=== PATIENT | female | born 1990 | race Caucasian/White ===

== ENCOUNTER 2016-06-25 09:34 | Emergency (ER) | payer OTHER ==
[2016-06-25] MEDS ORDERED: ONDANSETRON 4MG/2ML VIAL (J2405) As Ordered ONE ×2 (10:09→11:15)
[2016-06-25 10:27] LABS: BASO % 0.1 % (0.0-1.0); EOS # 0.1 K/mm3 (0.0-0.50); EOS % 0.8 % (0.0-3.0); LARGE UNSTAINED CELL # 0.1 K/mm3 (0.0-0.4); LARGE UNSTAINED CELL % 0.4 % (0.0-4.0); LYMPH # 0.5 K/mm3 (1.5-6.5); LYMPH % 2.5 % (24.0-44.0); MEAN CORPUSCULAR HEMOGLOBIN 27.5 pg (27.0-33.0); MEAN CORPUSCULAR HGB CONC 33.7 g/dl (32.0-36.5); MEAN CORPUSCULAR VOLUME 81.6 fl (80.0-96.0); MONO # 0.4 K/mm3 (0.0-0.8); MONO % 2.1 % (0.0-5.0); NEUTROPHILS # 17.2 K/mm3 (1.8-7.7); NEUTROPHILS % 94.1 % (36.0-66.0); PLATELET COUNT, AUTOMATED 339 k/mm3 (150-450); WHITE BLOOD COUNT 18.3 K/mm3 (4.0-10.0)
[2016-06-25] MEDS ORDERED: GASTROGRAFIN SOLUTION 30ML (Q9963) As Ordered ONE (10:31)
[2016-06-25 10:42] LABS: CONTROL LINE HCG INT CTR LINE PRESENT
[2016-06-25 10:54] LABS: ALBUMIN 3.8 GM/DL (3.2-5.2); ALBUMIN/GLOBULIN RATIO 0.93 (1.00-1.93); ALKALINE PHOSPHATASE 106 U/L (45-117); ALT/SGPT 38 U/L (12-78); AMYLASE 27 U/L (25-115); ANION GAP 13 MEQ/L (8-16); AST/SGOT 12 U/L (15-37); BILIRUBIN,DIRECT < 0.1 MG/DL (0.0-0.2); BILIRUBIN,TOTAL 0.5 MG/DL (0.2-1.0); BLOOD UREA NITROGEN 12 MG/DL (7-18); CALCIUM LEVEL 9.2 MG/DL (8.5-10.1); CARBON DIOXIDE LEVEL 21 MEQ/L (21-32); CHLORIDE LEVEL 105 MEQ/L (98-107); CREATININE FOR GFR 0.87 MG/DL (0.55-1.02); GLOMERULAR FILTRATION RATE > 60.0 (>60); GLUCOSE, FASTING 107 MG/DL (70-105); SODIUM LEVEL 139 MEQ/L (136-145); TOTAL PROTEIN 7.9 GM/DL (6.4-8.2)
[2016-06-25 11:46] LABS: MICROSCOPIC INDICATED? MAN YES (NO); SQUAMOUS EPITHELIAL CELL URINE SMALL AMOUNT /hpf (SMALL AMT); WBC, URINE 0-1 /hpf (0-3)
[2016-06-25 11:47] LABS: BACTERIA, URINE SMALL AMOUNT; HYALINE CAST, URINE NONE SEEN /lpf (0-1); MICROSCOPIC EXAM PERFORMED
[2016-06-25] MEDS ORDERED: ISOVUE-370 76% 100ML VIAL (Q9967) As Ordered ONE (11:53)
[2016-06-25] MEDS ORDERED: DICYCLOMINE 10 MG CAP As Ordered ONE (13:13)
[2016-06-25] MEDS ORDERED: TRIMETHOBENZAMIDE HCL INJ 200 MG/2 ML VIAL (J3250) As Ordered ONE (13:13)
--- NOTE | 2016-06-25 13:49 | REP ---
CT ABDOMEN AND PELVIS WITH IV BUT WITHOUT ORAL CONTRAST: HISTORY: Abdominal pain. Comparison study is from June 05, 2008. CT contrast dose: 100 mL of Isovue [address] FINDINGS: Preliminary physical therapy assistant radiograph is unremarkable. The lung bases are clear. There is no evidence of pleural effusion or upper abdominal ascites. The liver and spleen are normal in size and homogeneous in texture. There is a small accessory splenule. Pancreas shows no abnormality. No adrenal lesion is seen on either side. The kidneys enhance symmetrically and are morphologically intact. Normal caliber aorta is seen. No retroperitoneal mass or adenopathy is seen. No abdominal wall defect is observed. Small and large intestinal bowel loops are normal in the abdomen and pelvis. No uterine or ovarian abnormality is seen. A vaginal diaphragm is noted in place. No bony destructive lesion is seen. There is no evidence of inflammation in the region of the appendix or cecal tip. A short normal appearing appendix is seen. IMPRESSION: Negative CT study of the abdomen and pelvis. Normal appendix. Vaginal diaphragm noted in place incidentally. No acute abnormality. Signed by Scott Cuenca MD 06/25/2016 02:07 P
--- NOTE | 2016-06-25 14:09 | EDDOCDS ---
Physician Documentation [facility] Name: Miri Leija Age: 26 yrs Sex: Female : 1990 Arrival Date: 06/25/2016 Time: 09:34 Bed I2 / M2 Private MD: Sharad Lobato MD Disposition: 06/25/16 13:49 Discharged to Home/Self Care. Impression: Other abdominal pain - LLQ, Nausea with vomiting, unspecified, Irritable bowel syndrome with diarrhea. - Condition is Stable. - Discharge Instructions: Irritable Bowel Syndrome, Adult, Nausea and Vomiting. - Prescriptions for Bentyl 20 mg Oral Tablet - take 1 tablet by ORAL route every 6 hours As needed TAKE DIRECTED, NEEDED FOR SPASM; 40 tablet. Tigan 300 mg Oral Capsule - take 1 capsule by ORAL route every 12 hours As needed; 30 capsule. - Family Work Release, Medication Reconciliation, Local Pharmacy Hours form. - Follow up: Emergency Department; When: As needed; Reason: Worsening of conditions. Follow up: Private Physician; When: 2 - 3 days; Reason: Wound/Symptom Recheck, Recheck today's complaints, Continuance of care. - Problem is new. - Symptoms have improved. Historical: - Allergies: no known allergies; - Home Meds: 1. propranolol 10 mg oral tab once a day 2. fluoxetine 20 mg oral tab once daily 3. Omeprazole Unknown Oral once daily - PMHx: GERD; - PSHx: none; - Social history: Smoking status: Patient states was never smoker of tobacco. No barriers to communication noted, The patient speaks fluent Urdu, Speaks appropriately for age. - Family history: Not pertinent. - : The pt / caregiver states he / she is not on anticoagulants. Home medication list is obtained from the patient. - Exposure Risk Screening:: None identified. 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 5 in. (165.10 cm); 12:37 BP 125 / 65; Pulse 89; Resp 20; Temp 98.8; Pulse Ox 99% ; Pain 4/10; jam1 13:50 BP 120 / 65; Pulse 94; Resp 18; Temp 98.9; Pulse Ox 98% ; Pain 0/10; jam1 09:36 Body Mass Index 32.45 (88.45 kg, 165.10 cm) cmb MDM: 10:05 NS 0.9% 1000 ml IV at bolus once ordered. ml 10:05 Ondansetron 4 mg IVP once ordered. ml 10:05 IV Saline Lock ordered. ml 10:05 Undress patient appropriately for examination ordered. ml 10:06 CT ABD & PELVIS: IV and Oral Contrast Ordered. EDMS 10:06 Amylase Ordered. EDMS 10:06 Basic Metabolic Profile Ordered. EDMS 10:06 CBC with Diff Ordered. EDMS 10:06 HCG,Serum Qualitative Ordered. EDMS 10:06 Lipase Ordered. EDMS 10:06 Liver Profile Ordered. EDMS 10:07 Urine Culture Ordered. EDMS 10:07 NOTHING BY MOUTH+DIET ordered. EDMS 10:10 Financial registration complete. mm15 10:17 [facility] [place] was scanned into [employer] and attached to record. mm15 10:44 Diatrizoate Meglumine & Sodium Liquid 10 ml PO once; mix in 290cc of water ordered. mcp 10:44 Diatrizoate Meglumine & Sodium Liquid 10 ml PO once; mix in 290cc of water ordered. mcp 11:09 Ondansetron 4 mg IVP once ordered. dt4 11:43 URINALYSIS MANUAL Ordered. EDMS 11:47 MICROSCOPIC, URINE Ordered. EDMS 12:58 Tigan 200 mg IM once ordered. dt4 12:58 Dicyclomine 40 mg PO once ordered. dt4 Administered Medications: 10:18 Drug: NS 0.9% 1000 ml [sodium chloride 0.9 % intravenous solution] Route: IV; Rate: mcp bolus; Site: right antecubital; 11:57 Follow up: IV Status: Completed infusion srm 10:18 Drug: Ondansetron 4 mg [ondansetron HCl 2 mg/mL intravenous solution (2 mL)] Route: mcp IVP; Site: right antecubital; 10:35 Drug: Diatrizoate Meglumine & Sodium 10 ml [diatrizoate meglumine and diat.sodium 66 mcp %-10 % oral solution (10 mL)] Route: PO; 11:21 Drug: Ondansetron 4 mg [ondansetron HCl 2 mg/mL intravenous solution (2 mL)] Route: ms18 IVP; Site: right antecubital; 11:39 Not Given (PT states that she cannot finish the gastrografin, provider aware. Ct ms18 notified. ): Diatrizoate Meglumine & Sodium Liquid 10 ml PO once; mix in 290cc of water 13:19 Drug: Dicyclomine 40 mg [dicyclomine 10 mg capsule (4 caps)] Route: PO; ms18 13:20 Drug: Tigan 200 mg [Tigan 100 mg/mL intramuscular solution (2 mL)] Route: IM; Site: ms18 right gluteus; Signatures: Dispatcher [employer] EDMS Tanisha Cardozo MD MD ml Peters, Mary, RN RN mcp McGrath, Marlynn mm15 Nayla Ring RN RN ead Tschudi, Diane PA-Yasemin PAAngela dt4 Marybeth Pulliam RN RN ms18 Ina Don RN [facility] The chart was reviewed and I authenticate all verbal orders and agree with the evaluation and treatment provided.Corrections: (The following items were deleted from the chart) 11:43 10:06 URINALYSIS+LAB ordered. EDMS EDMS Attachments: 10:17 [facility] Payment Agreement mm15 MTDD
--- NOTE | 2016-06-25 14:09 | EDDOCDS ---
Nurse's Notes [facility] Name: Miri Leija Age: 26 yrs Sex: Female : 1990 Arrival Date: 06/25/2016 Time: 09:34 Bed I2 / M2 Private MD: Sharad Lobato MD Diagnosis: Other abdominal pain-LLQ;Nausea with vomiting, unspecified;Irritable bowel syndrome with diarrhea Presentation: 06/25 09:43 Presenting complaint: Patient states: "I'm having severe stomach pains for about six ead hours." Pt also c/o n/v/d. Risk factors: the patient reports no vaginal bleeding. Adult Sepsis Screening: The patient does not have new or worsening altered mentation. Patient's respiratory rate is less than 22. Systolic blood pressure is greater than 100. Patient has a qSOFA score of 0- Negative Sepsis Screen. Suicide/Homicide risk assessment- the patient denies having any suicidal and/or homicidal ideations and does not present with any other emotional, behavioral or mental health complaints. Status: Patient is not a digital service engineer or dependent. Transition of care: patient was not received from another setting of care. 09:43 Acuity: ERASMO Level 3 ead 09:43 Method Of Arrival: Walkin/Carried/Asstd ead Triage Assessment: 09:45 General: Appears in no apparent distress, uncomfortable, Behavior is appropriate for ead age, cooperative. Pain: Location: abdomen Pain currently is 8 out of 10 on a pain scale. GI: Reports cramping, diarrhea, lower abdominal pain, upper abd pain, nausea, vomiting. : Denies pain urinary frequency, urgency. Derm: Skin is pink, warm & dry. 09:46 HIV screening NA for this visit Offered previously. 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 propranolol 10 mg oral tab once a day 2. fluoxetine 20 mg oral tab once daily 3. Omeprazole Unknown Oral once daily - PMHx: GERD; - PSHx: none; - Social history: Smoking status: Patient states was never smoker of tobacco. No barriers to communication noted, The patient speaks fluent Micronesian, Speaks appropriately for age. - Family history: Not pertinent. - : The pt / caregiver states he / she is not on anticoagulants. Home medication list is obtained from the patient. - Exposure Risk Screening:: None identified. Screenin:58 Screening information is obtained from the patient. Primary language is Micronesian. Fall jam1 risk: No risks identified. Assistance ADL's: requires no assistance with activities of daily living. Abuse/DV Screen: The patient / caregiver reports he/she is: not in a situation that causes fear, pain or injury. Nutritional screening: No deficits noted. Exposure Risk Screening: None identified. Advance Directives: Currently, there is no health care proxy. There is no active DNR order. There is no living will. There is no Power of Ware Finisher. Advance directive information has not previously been placed in an [facility] medical record. Further advance directive information is declined. home support is adequate. Assessment: 11:12 General: Appears in no apparent distress, obese, uncomfortable, Behavior is appropriate ms18 for age, cooperative. Neurological: Level of Consciousness is awake, alert, obeys commands, Oriented to person, place, time. Respiratory: Airway is patent Respiratory effort is even, unlabored. GI: Abdomen is non- distended Abd is soft X 4 quads Reports nausea, vomiting. Derm: Skin is pink, warm & dry. 11:19 General: pt states she's nauseous and feel hot after attempting to drink Gastrografin. [facility] PA aware. 12:14 General: Appears in no apparent distress, comfortable, Will continue to monitor pt. ms18 13:21 General: Appears in no apparent distress, comfortable, Behavior is appropriate for age, ms18 cooperative, Will continue to monitor pt. 14:06 General: Appears in no apparent distress, comfortable, Behavior is appropriate for age, ms18 cooperative. Pain: Denies pain. Neurological: No deficits noted. Respiratory: Airway is patent Respiratory effort is even, unlabored. GI: Abdomen is non- distended. Derm: Skin is pink, warm & dry. Vital Signs: 09:36 BP 154 / 87; Pulse 113; Resp 18; Temp 98.1(O); Pulse Ox 100% ; Weight 88.45 kg; Height cmb 5 ft. 5 in. (165.10 cm); 12:37 BP 125 / 65; Pulse 89; Resp 20; Temp 98.8; Pulse Ox 99% ; Pain 4/10; jam1 13:50 BP 120 / 65; Pulse 94; Resp 18; Temp 98.9; Pulse Ox 98% ; Pain 0/10; jam1 09:36 Body Mass Index 32.45 (88.45 kg, 165.10 cm) cmb Vitals: 09:36 Log In Time: June 25, 2016 at 09:34. cmb ED Course: 09:35 Patient visited by Brooke Nicolas. cmb 09:35 Patient moved to Waiting cmb 09:36 Sharad Lobato is Private Physician. cmb 09:37 Patient moved to Pre RCE cmb 09:44 Triage Initiated ead 09:46 Patient moved to Triage 2 ead 09:49 Tanisha Cardozo MD is Attending Physician. ml 09:49 Patient visited by Tanisha Cardozo MD. ml 09:53 Patient moved to I2 / M2 ead 09:59 Pt greeted and oriented to ED. Patient advised of names of staff involved in care, jam1 location of call li, wait times and NPO status. Patient has correct armband on for positive identification. Placed in gown. Bed in low position. Call light in reach. Side rails up X 1. Adult w/ patient. Door closed. 10:17 [facility] [place] Agreement was scanned into [employer] and attached to record. mm15 10:20 Amylase Sent. js13 10:20 Basic Metabolic Profile Sent. js13 10:20 CBC with Diff Sent. js13 10:20 HCG,Serum Qualitative Sent. js13 10:20 Lipase Sent. js13 10:20 Liver Profile Sent. js13 10:20 Inserted saline lock: 18 gauge in right antecubital area and blood collected. The js13 patient tolerated the procedure well. No procedures done that require assistance. Labs drawn. (by ED staff). Sent per order to lab. 10:50 Cheryl Oro PA-C is PHCP. dt4 10:51 Patient visited by Cheryl Oro PA-C. dt4 11:12 The patient / caregiver is instructed regarding the plan of care and ED course. ms18 Property :Personal belongings accompany Pt. 11:14 Patient visited by Marybeth Pulliam RN. ms18 11:21 Urine Culture Sent. ms18 11:38 Patient visited by Marybeth Pulliam RN. ms18 12:39 Patient visited by Marybeth Pulliam RN. ms18 13:19 Patient visited by Marybeth Pulliam RN. ms18 14:06 Discontinued IV lock intact, bleeding controlled, pressure dressing applied, No ms18 redness/swelling at site. Administered Medications: 10:18 Drug: NS 0.9% 1000 ml [sodium chloride 0.9 % intravenous solution] Route: IV; Rate: mcp bolus; Site: right antecubital; 11:57 Follow up: IV Status: Completed infusion srm 10:18 Drug: Ondansetron 4 mg [ondansetron HCl 2 mg/mL intravenous solution (2 mL)] Route: mcp IVP; Site: right antecubital; 10:35 Drug: Diatrizoate Meglumine & Sodium 10 ml [diatrizoate meglumine and diat.sodium 66 mcp %-10 % oral solution (10 mL)] Route: PO; 11:21 Drug: Ondansetron 4 mg [ondansetron HCl 2 mg/mL intravenous solution (2 mL)] Route: ms18 IVP; Site: right antecubital; 11:39 Not Given (PT states that she cannot finish the gastrografin, provider aware. Ct ms18 notified. ): Diatrizoate Meglumine & Sodium Liquid 10 ml PO once; mix in 290cc of water 13:19 Drug: Dicyclomine 40 mg [dicyclomine 10 mg capsule (4 caps)] Route: PO; ms18 13:20 Drug: Tigan 200 mg [Tigan 100 mg/mL intramuscular solution (2 mL)] Route: IM; Site: ms18 right gluteus; Intake: 11:58 IV: 1000.00ml (NS); Total: 1000.00ml. srm Order Results: Lab Order: Amylase; SPEC'M 06/25/16 10:17 Test: AMYLASE; Value: 27; Range: 25-115; Units: U/L; Status: F Lab Order: Basic Metabolic Profile; SPEC'M 06/25/16 10:17 Test: GLUCOSE, FASTING; Value: 107; Range: 70-105; Abnormal: Above high normal; Units: MG/DL; Status: F Test: BLOOD UREA NITROGEN; Value: 12; Range: 7-18; Units: MG/DL; Status: F Test: CREATININE FOR GFR; Value: 0.87; Range: 0.55-1.02; Units: MG/DL; Status: F Test: SODIUM LEVEL; Range: 136-145; Units: MEQ/L; Status: I Test: POTASSIUM SERUM; Range: 3.5-5.1; Units: MEQ/L; Status: I Test: CHLORIDE LEVEL; Range: 98-107; Units: MEQ/L; Status: I Test: CARBON DIOXIDE LEVEL; Range: 21-32; Units: MEQ/L; Status: I Test: ANION GAP; Range: 8-16; Units: MEQ/L; Status: I Test: CALCIUM LEVEL; Range: 8.5-10.1; Units: MG/DL; Status: I Test: GLOMERULAR FILTRATION RATE; Value: > 60.0; Range: >60; Status: F Test: SODIUM LEVEL; Value: 139; Range: 136-145; Units: MEQ/L; Status: F Test: POTASSIUM SERUM; Value: 4.0; Range: 3.5-5.1; Units: MEQ/L; Status: F Test: CHLORIDE LEVEL; Value: 105; Range: 98-107; Units: MEQ/L; Status: F Test: CARBON DIOXIDE LEVEL; Value: 21; Range: 21-32; Units: MEQ/L; Status: F Test: ANION GAP; Value: 13; Range: 8-16; Units: MEQ/L; Status: F Test: CALCIUM LEVEL; Value: 9.2; Range: 8.5-10.1; Units: MG/DL; Status: F Test Note: ; Units are mL/min/1.73 m2 Chronic Kidney Disease Staging per NKF: Stage I & II GFR >=60 Normal to Mildly Decreased Stage III GFR 30-59 Moderately Decreased Stage IV GFR 15-29 Severely Decreased Stage V GFR <15 Very Little GFR Left ESRD GFR <15 on FUEL HANDLER Lab Order: CBC with Diff; SPEC'M 06/25/16 10:17 Test: WHITE BLOOD COUNT; Value: 18.3; Range: 4.0-10.0; Abnormal: Above high normal; Units: K/mm3; Status: F Test: RED BLOOD COUNT; Value: 5.18; Range: 4.00-5.40; Units: M/mm3; Status: F Test: HEMOGLOBIN; Value: 14.2; Range: 12.0-16.0; Units: g/dl; Status: F Test: HEMATOCRIT; Value: 42.3; Range: 36.0-47.0; Units: %; Status: F Test: MEAN CORPUSCULAR VOLUME; Value: 81.6; Range: 80.0-96.0; Units: fl; Status: F Test: MEAN CORPUSCULAR HEMOGLOBIN; Value: 27.5; Range: 27.0-33.0; Units: pg; Status: F Test: MEAN CORPUSCULAR HGB CONC; Value: 33.7; Range: 32.0-36.5; Units: g/dl; Status: F Test: RED CELL DISTRIBUTION WIDTH; Value: 12.0; Range: 11.5-14.5; Units: %; Status: F Test: PLATELET COUNT, AUTOMATED; Value: 339; Range: 150-450; Units: k/mm3; Status: F Test: NEUTROPHILS %; Value: 94.1; Range: 36.0-66.0; Abnormal: Above high normal; Units: %; Status: F Test: LYMPH %; Value: 2.5; Range: 24.0-44.0; Abnormal: Below low normal; Units: %; Status: F Test: MONO %; Value: 2.1; Range: 0.0-5.0; Units: %; Status: F Test: EOS %; Value: 0.8; Range: 0.0-3.0; Units: %; Status: F Test: BASO %; Value: 0.1; Range: 0.0-1.0; Units: %; Status: F Test: LARGE UNSTAINED CELL %; Value: 0.4; Range: 0.0-4.0; Units: %; Status: F Test: NEUTROPHILS #; Value: 17.2; Range: 1.8-7.7; Abnormal: Above high normal; Units: K/mm3; Status: F Test: LYMPH #; Value: 0.5; Range: 1.5-6.5; Abnormal: Below low normal; Units: K/mm3; Status: F Test: MONO #; Value: 0.4; Range: 0.0-0.8; Units: K/mm3; Status: F Test: EOS #; Value: 0.1; Range: 0.0-0.50; Units: K/mm3; Status: F Test: BASO #; Value: 0.0; Range: 0.0-0.2; Units: K/mm3; Status: F Test: LARGE UNSTAINED CELL #; Value: 0.1; Range: 0.0-0.4; Units: K/mm3; Status: F Lab Order: HCG,Serum Qualitative; 06/25/16 10:17 Test: HCG, SERUM QUALITATIVE; Value: NEGATIVE; Range: NEGATIVE; Status: F Lab Order: Lipase; 06/25/16 10:17 Test: LIPASE; Value: 88; Range: 73-393; Units: U/L; Status: F Lab Order: Liver Profile; 06/25/16 10: Test: AST/SGOT; Value: 12; Range: 15-37; Abnormal: Below low normal; Units: U/L; Status: F Test: ALT/SGPT; Value: 38; Range: 12-78; Units: U/L; Status: F Test: ALKALINE PHOSPHATASE; Value: 106; Range: 45-117; Units: U/L; Status: F Test: BILIRUBIN,TOTAL; Value: 0.5; Range: 0.2-1.0; Units: MG/DL; Status: F Test: BILIRUBIN,DIRECT; Value: < 0.1; Range: 0.0-0.2; Units: MG/DL; Status: F Test: TOTAL PROTEIN; Value: 7.9; Range: 6.4-8.2; Units: GM/DL; Status: F Test: ALBUMIN; Value: 3.8; Range: 3.2-5.2; Units: GM/DL; Status: F Test: ALBUMIN/GLOBULIN RATIO; Value: 0.93; Range: 1.00-1.93; Abnormal: Below low normal; Status: F Lab Order: URINALYSIS MANUAL; 06/25/16 11:19 Test: APPEARANCE, URINE MANUAL; Value: CLEAR; Range: CLEAR; Status: F Test: COLOR, URINE MANUAL; Value: YELLOW; Range: YELLOW; Status: F Test: PH,URINE MAN; Value: 8.0; Range: 5.0 - 9.0; Units: UNITS; Status: F Test: SPECIFIC GRAVITY,URINE MANUAL; Value: 1.023; Range: 1.002-1.035; Status: F Test: PROTEIN, URINE MANUAL; Value: TRACE; Range: NEGATIVE; Abnormal: Above high normal; Units: mg/dL; Status: F Test: GLUCOSE, URINE (UA) MANUAL; Value: NEGATIVE; Range: NEGATIVE; Units: mg/dL; Status: F Test: KETONE, URINE MANUAL; Value: NEGATIVE; Range: NEGATIVE; Units: mg/dL; Status: F Test: UROBILINOGEN, URINE MANUAL; Value: NORMAL; Range: NORMAL; Units: mg/dl; Status: F Test: BILIRUBIN, URINE MANUAL; Value: NEGATIVE; Range: NEGATIVE; Status: F Test: NITRITE, URINE MANUAL; Value: NEGATIVE; Range: NEGATIVE; Status: F Test: LEUKOCYTE ESTERASE, URINE MAN; Value: NEGATIVE; Range: NEGATIVE; Status: F Test: BLOOD URINE MANUAL; Value: TRACE; Range: NEGATIVE; Abnormal: Above high normal; Status: F Lab Order: MICROSCOPIC, URINE; SPEC'M 06/25/16 11:19 Test: WBC, URINE; Value: 0-1; Range: 0-3; Units: /hpf; Status: F Test: RBC, URINE; Value: 1-3; Range: 0-3; Units: /hpf; Status: F Test: SQUAMOUS EPITHELIAL CELL URINE; Value: SMALL AMOUNT; Range: SMALL AMT; Units: /hpf; Status: F Test: BACTERIA, URINE; Value: SMALL AMOUNT; Range: NONE; Abnormal: Above high normal; Status: F Test: HYALINE CAST, URINE; Value: NONE SEEN; Range: 0-1; Units: /lpf; Status: F Test: MICROSCOPIC EXAM; Value: PERFORMED; Status: F Outcome: 13:49 Discharge ordered by Provider. dt4 14:06 Discharge Assessment: Patient awake, alert and oriented x 3. No cognitive and/or ms18 functional deficits noted. Patient verbalized understanding of disposition instructions. patient administered narcotics - no. The following High Risk Discharge criteria are identified: None. Discharged to home ambulatory. Condition: good Condition: stable Condition: improved. Discharge instructions given to patient, Instructed on discharge instructions, follow up and referral plans. medication usage, Demonstrated understanding of instructions, medications, Pt was receptive of discharge instructions/ teaching. Prescriptions given X 2, Work note provided to patient. CT Study completed. 14:09 Patient left the ED. ms18 Signatures: Tanisha Cardozo MD MD ml Ina Don, RN RN srm Salina Austin, RN RN Kirti Mills, EATING DISORDER SPECIALIST EATING DISORDER SPECIALIST jam1 Kelley Kolb RN RN js13 Brooke Nicolas cmb Oleg Sahni mm15 Nayla Ring,RN RN Cheryl Abbasi, PA-C PA-C dt4 Marybeth Pulliam RN RN ms18 Corrections: (The following items were deleted from the chart) 11:43 11:21 URINALYSIS+LAB sent. ms18 EDMS MTDD
--- NOTE | 2016-06-27 15:09 | EDDOCDS ---
Physician Documentation [facility] Name: Miri Leija Age: 26 yrs Sex: Female : 1990 Arrival Date: 06/25/2016 Time: 09:34 Bed I2 / M2 Private MD: Sharad Lobato MD Disposition: 06/25/16 13:49 Discharged to Home/Self Care. Impression: Other abdominal pain - LLQ, Nausea with vomiting, unspecified, Irritable bowel syndrome with diarrhea. - Condition is Stable. - Discharge Instructions: Irritable Bowel Syndrome, Adult, Nausea and Vomiting. - Prescriptions for Bentyl 20 mg Oral Tablet - take 1 tablet by ORAL route every 6 hours As needed TAKE DIRECTED, NEEDED FOR SPASM; 40 tablet. Tigan 300 mg Oral Capsule - take 1 capsule by ORAL route every 12 hours As needed; 30 capsule. - Family Work Release, Medication Reconciliation, Local Pharmacy Hours form. - Follow up: Emergency Department; When: As needed; Reason: Worsening of conditions. Follow up: Private Physician; When: 2 - 3 days; Reason: Wound/Symptom Recheck, Recheck today's complaints, Continuance of care. - Problem is new. - Symptoms have improved. Historical: - Allergies: no known allergies; - Home Meds: 1. propranolol 10 mg oral tab once a day 2. fluoxetine 20 mg oral tab once daily 3. Omeprazole Unknown Oral once daily - PMHx: GERD; - PSHx: none; - Social history: Smoking status: Patient states was never smoker of tobacco. No barriers to communication noted, The patient speaks fluent Kiswahili, Speaks appropriately for age. - Family history: Not pertinent. - : The pt / caregiver states he / she is not on anticoagulants. Home medication list is obtained from the patient. - Exposure Risk Screening:: None identified. 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 5 in. (165.10 cm); 12:37 BP 125 / 65; Pulse 89; Resp 20; Temp 98.8; Pulse Ox 99% ; Pain 4/10; jam1 13:50 BP 120 / 65; Pulse 94; Resp 18; Temp 98.9; Pulse Ox 98% ; Pain 0/10; jam1 09:36 Body Mass Index 32.45 (88.45 kg, 165.10 cm) cmb MDM: 10:05 NS 0.9% 1000 ml IV at bolus once ordered. ml 10:05 Ondansetron 4 mg IVP once ordered. ml 10:05 IV Saline Lock ordered. ml 10:05 Undress patient appropriately for examination ordered. ml 10:06 CT ABD & PELVIS: IV and Oral Contrast Ordered. EDMS 10:06 Amylase Ordered. EDMS 10:06 Basic Metabolic Profile Ordered. EDMS 10:06 CBC with Diff Ordered. EDMS 10:06 HCG,Serum Qualitative Ordered. EDMS 10:06 Lipase Ordered. EDMS 10:06 Liver Profile Ordered. EDMS 10:07 Urine Culture Ordered. EDMS 10:07 NOTHING BY MOUTH+DIET ordered. EDMS 10:10 Financial registration complete. mm15 10:17 [facility] Payment Agreement was scanned into [employer] and attached to record. mm15 10:44 Diatrizoate Meglumine & Sodium Liquid 10 ml PO once; mix in 290cc of water ordered. mcp 10:44 Diatrizoate Meglumine & Sodium Liquid 10 ml PO once; mix in 290cc of water ordered. mcp 11:09 Ondansetron 4 mg IVP once ordered. dt4 11:43 URINALYSIS MANUAL Ordered. EDMS 11:47 MICROSCOPIC, URINE Ordered. EDMS 12:58 Tigan 200 mg IM once ordered. dt4 12:58 Dicyclomine 40 mg PO once ordered. dt4 06/26 10:04 T-Sheet-- Draft Copy was scanned into [employer] and attached to record. gb 10:04 Radiology Report was scanned into [employer] and attached to record. gb Administered Medications: 06/25 10:18 Drug: NS 0.9% 1000 ml [sodium chloride 0.9 % intravenous solution] Route: IV; Rate: mcp bolus; Site: right antecubital; 11:57 Follow up: IV Status: Completed infusion srm 10:18 Drug: Ondansetron 4 mg [ondansetron HCl 2 mg/mL intravenous solution (2 mL)] Route: mcp IVP; Site: right antecubital; 10:35 Drug: Diatrizoate Meglumine & Sodium 10 ml [diatrizoate meglumine and diat.sodium 66 mcp %-10 % oral solution (10 mL)] Route: PO; 11:21 Drug: Ondansetron 4 mg [ondansetron HCl 2 mg/mL intravenous solution (2 mL)] Route: ms18 IVP; Site: right antecubital; 11:39 Not Given (PT states that she cannot finish the gastrografin, provider aware. Ct ms18 notified. ): Diatrizoate Meglumine & Sodium Liquid 10 ml PO once; mix in 290cc of water 13:19 Drug: Dicyclomine 40 mg [dicyclomine 10 mg capsule (4 caps)] Route: PO; ms18 13:20 Drug: Tigan 200 mg [Tigan 100 mg/mL intramuscular solution (2 mL)] Route: IM; Site: ms18 right gluteus; Signatures: Dispatcher [employer] EDMS Tanisha Cardozo MD MD ml Peters, Mary RN RN Ailyn Tinajero, Patrick [facility] Oleg Barreto mm15 Nayla Ring,MALINI RN eaCheryl Cordova PA-C PA-Yasemin dt4 Marybeth Pulliam RN RN ms18 Ina Don RN srm The chart was reviewed and I authenticate all verbal orders and agree with the evaluation and treatment provided.Corrections: (The following items were deleted from the chart) 11:43 10:06 URINALYSIS+LAB ordered. EDMS EDMS Attachments: 10:17 [facility] Payment Agreement mm15 06/26 10:04 T-Sheet-- Draft Copy gb Chart Complete [facility]
--- NOTE | 2016-06-27 15:10 | EDDOCDS ---
Physician Documentation [facility] Name: Miri Leija Age: 26 yrs Sex: Female : 1990 Arrival Date: 06/25/2016 Time: 09:34 Bed I2 / M2 Private MD: Sharad Lobato MD Disposition: 06/25/16 13:49 Discharged to Home/Self Care. Impression: Other abdominal pain - LLQ, Nausea with vomiting, unspecified, Irritable bowel syndrome with diarrhea. - Condition is Stable. - Discharge Instructions: Irritable Bowel Syndrome, Adult, Nausea and Vomiting. - Prescriptions for Bentyl 20 mg Oral Tablet - take 1 tablet by ORAL route every 6 hours As needed TAKE DIRECTED, NEEDED FOR SPASM; 40 tablet. Tigan 300 mg Oral Capsule - take 1 capsule by ORAL route every 12 hours As needed; 30 capsule. - Family Work Release, Medication Reconciliation, Local Pharmacy Hours form. - Follow up: Emergency Department; When: As needed; Reason: Worsening of conditions. Follow up: Private Physician; When: 2 - 3 days; Reason: Wound/Symptom Recheck, Recheck today's complaints, Continuance of care. - Problem is new. - Symptoms have improved. Historical: - Allergies: no known allergies; - Home Meds: 1. propranolol 10 mg oral tab once a day 2. fluoxetine 20 mg oral tab once daily 3. Omeprazole Unknown Oral once daily - PMHx: GERD; - PSHx: none; - Social history: Smoking status: Patient states was never smoker of tobacco. No barriers to communication noted, The patient speaks fluent Urdu, Speaks appropriately for age. - Family history: Not pertinent. - : The pt / caregiver states he / she is not on anticoagulants. Home medication list is obtained from the patient. - Exposure Risk Screening:: None identified. 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 5 in. (165.10 cm); 12:37 BP 125 / 65; Pulse 89; Resp 20; Temp 98.8; Pulse Ox 99% ; Pain 4/10; jam1 13:50 BP 120 / 65; Pulse 94; Resp 18; Temp 98.9; Pulse Ox 98% ; Pain 0/10; jam1 09:36 Body Mass Index 32.45 (88.45 kg, 165.10 cm) cmb MDM: 10:05 NS 0.9% 1000 ml IV at bolus once ordered. ml 10:05 Ondansetron 4 mg IVP once ordered. ml 10:05 IV Saline Lock ordered. ml 10:05 Undress patient appropriately for examination ordered. ml 10:06 CT ABD & PELVIS: IV and Oral Contrast Ordered. EDMS 10:06 Amylase Ordered. EDMS 10:06 Basic Metabolic Profile Ordered. EDMS 10:06 CBC with Diff Ordered. EDMS 10:06 HCG,Serum Qualitative Ordered. EDMS 10:06 Lipase Ordered. EDMS 10:06 Liver Profile Ordered. EDMS 10:07 Urine Culture Ordered. EDMS 10:07 NOTHING BY MOUTH+DIET ordered. EDMS 10:10 Financial registration complete. mm15 10:17 [facility] Payment Agreement was scanned into [employer] and attached to record. mm15 10:44 Diatrizoate Meglumine & Sodium Liquid 10 ml PO once; mix in 290cc of water ordered. mcp 10:44 Diatrizoate Meglumine & Sodium Liquid 10 ml PO once; mix in 290cc of water ordered. mcp 11:09 Ondansetron 4 mg IVP once ordered. dt4 11:43 URINALYSIS MANUAL Ordered. EDMS 11:47 MICROSCOPIC, URINE Ordered. EDMS 12:58 Tigan 200 mg IM once ordered. dt4 12:58 Dicyclomine 40 mg PO once ordered. dt4 06/26 10:04 T-Sheet-- Draft Copy was scanned into [employer] and attached to record. gb 10:04 Radiology Report was scanned into [employer] and attached to record. gb Administered Medications: 06/25 10:18 Drug: NS 0.9% 1000 ml [sodium chloride 0.9 % intravenous solution] Route: IV; Rate: mcp bolus; Site: right antecubital; 11:57 Follow up: IV Status: Completed infusion srm 10:18 Drug: Ondansetron 4 mg [ondansetron HCl 2 mg/mL intravenous solution (2 mL)] Route: mcp IVP; Site: right antecubital; 10:35 Drug: Diatrizoate Meglumine & Sodium 10 ml [diatrizoate meglumine and diat.sodium 66 mcp %-10 % oral solution (10 mL)] Route: PO; 11:21 Drug: Ondansetron 4 mg [ondansetron HCl 2 mg/mL intravenous solution (2 mL)] Route: ms18 IVP; Site: right antecubital; 11:39 Not Given (PT states that she cannot finish the gastrografin, provider aware. Ct ms18 notified. ): Diatrizoate Meglumine & Sodium Liquid 10 ml PO once; mix in 290cc of water 13:19 Drug: Dicyclomine 40 mg [dicyclomine 10 mg capsule (4 caps)] Route: PO; ms18 13:20 Drug: Tigan 200 mg [Tigan 100 mg/mL intramuscular solution (2 mL)] Route: IM; Site: ms18 right gluteus; Signatures: Dispatcher [employer] EDMS Tanisha Cardozo MD MD ml Peters, Mary RN RN Ailyn Tinajero, aPtrick [facility] Oleg Barreto mm15 Nayla Ring,MALINI RN eaCheryl Cordova PA-C PA-Yasemin dt4 Marybeth Pulliam RN RN ms18 Ina Don RN srm The chart was reviewed and I authenticate all verbal orders and agree with the evaluation and treatment provided.Corrections: (The following items were deleted from the chart) 11:43 10:06 URINALYSIS+LAB ordered. EDMS EDMS Attachments: 10:17 [facility] Payment Agreement mm15 06/26 10:04 T-Sheet-- Draft Copy gb Chart [facility]
--- NOTE | 2016-06-27 15:10 | EDDOCDS ---
Nurse's Notes [facility] Name: Miri Leija Age: 26 yrs Sex: Female : 1990 Arrival Date: 06/25/2016 Time: 09:34 Bed I2 / M2 Private MD: Sharad Lobato MD Diagnosis: Other abdominal pain-LLQ;Nausea with vomiting, unspecified;Irritable bowel syndrome with diarrhea Presentation: 06/25 09:43 Presenting complaint: Patient states: "I'm having severe stomach pains for about six ead hours." Pt also c/o n/v/d. Risk factors: the patient reports no vaginal bleeding. Adult Sepsis Screening: The patient does not have new or worsening altered mentation. Patient's respiratory rate is less than 22. Systolic blood pressure is greater than 100. Patient has a qSOFA score of 0- Negative Sepsis Screen. Suicide/Homicide risk assessment- the patient denies having any suicidal and/or homicidal ideations and does not present with any other emotional, behavioral or mental health complaints. 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 Transition of care: patient was not received from another setting of care. 09:43 Acuity: ERASMO Level 3 ead 09:43 Method Of Arrival: Walkin/Carried/Asstd ead Triage Assessment: 09:45 General: Appears in no apparent distress, uncomfortable, Behavior is appropriate for ead age, cooperative. Pain: Location: abdomen Pain currently is 8 out of 10 on a pain scale. GI: Reports cramping, diarrhea, lower abdominal pain, upper abd pain, nausea, vomiting. : Denies pain urinary frequency, urgency. Derm: Skin is pink, warm & dry. 09:46 HIV screening NA for this visit Offered previously. 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 propranolol 10 mg oral tab once a day 2. fluoxetine 20 mg oral tab once daily 3. Omeprazole Unknown Oral once daily - PMHx: GERD; - PSHx: none; - Social history: Smoking status: Patient states was never smoker of tobacco. No barriers to communication noted, The patient speaks fluent Cameroonian, Speaks appropriately for age. - Family history: Not pertinent. - : The pt / caregiver states he / she is not on anticoagulants. Home medication list is obtained from the patient. - Exposure Risk Screening:: None identified. Screenin:58 Screening information is obtained from the patient. Primary language is Cameroonian. Fall jam1 risk: No risks identified. Assistance ADL's: requires no assistance with activities of daily living. Abuse/DV Screen: The patient / caregiver reports he/she is: not in a situation that causes fear, pain or injury. Nutritional screening: No deficits noted. Exposure Risk Screening: None identified. Advance Directives: Currently, there is no health care proxy. There is no active DNR order. There is no living will. There is no Power of Reliability Technologist. Advance directive information has not previously been placed in an [facility] medical record. Further advance directive information is declined. home support is adequate. Assessment: 11:12 General: Appears in no apparent distress, obese, uncomfortable, Behavior is appropriate ms18 for age, cooperative. Neurological: Level of Consciousness is awake, alert, obeys commands, Oriented to person, place, time. Respiratory: Airway is patent Respiratory effort is even, unlabored. GI: Abdomen is non- distended Abd is soft X 4 quads Reports nausea, vomiting. Derm: Skin is pink, warm & dry. 11:19 General: pt states she's nauseous and feel hot after attempting to drink Gastrografin. [facility] PA aware. 12:14 General: Appears in no apparent distress, comfortable, Will continue to monitor pt. ms18 13:21 General: Appears in no apparent distress, comfortable, Behavior is appropriate for age, ms18 cooperative, Will continue to monitor pt. 14:06 General: Appears in no apparent distress, comfortable, Behavior is appropriate for age, ms18 cooperative. Pain: Denies pain. Neurological: No deficits noted. Respiratory: Airway is patent Respiratory effort is even, unlabored. GI: Abdomen is non- distended. Derm: Skin is pink, warm & dry. Vital Signs: 09:36 BP 154 / 87; Pulse 113; Resp 18; Temp 98.1(O); Pulse Ox 100% ; Weight 88.45 kg; Height cmb 5 ft. 5 in. (165.10 cm); 12:37 BP 125 / 65; Pulse 89; Resp 20; Temp 98.8; Pulse Ox 99% ; Pain 4/10; jam1 13:50 BP 120 / 65; Pulse 94; Resp 18; Temp 98.9; Pulse Ox 98% ; Pain 0/10; jam1 09:36 Body Mass Index 32.45 (88.45 kg, 165.10 cm) cmb Vitals: 09:36 Log In Time: June 25, 2016 at 09:34. cmb ED Course: 09:35 Patient visited by Brooke Nicolas. cmb 09:35 Patient moved to Waiting cmb 09:36 Sharad Lobato is Private Physician. cmb 09:37 Patient moved to Pre RCE cmb 09:44 Triage Initiated ead 09:46 Patient moved to Triage 2 ead 09:49 Tanisha Cardozo MD is Attending Physician. ml 09:49 Patient visited by Tanisha Cardozo MD. ml 09:53 Patient moved to I2 / M2 ead 09:59 Pt greeted and oriented to ED. Patient advised of names of staff involved in care, jam1 location of call li, wait times and NPO status. Patient has correct armband on for positive identification. Placed in gown. Bed in low position. Call light in reach. Side rails up X 1. Adult w/ patient. Door closed. 10:17 [facility] [place] was scanned into eventblimp and attached to record. mm15 10:20 Amylase Sent. js13 10:20 Basic Metabolic Profile Sent. js13 10:20 CBC with Diff Sent. js13 10:20 HCG,Serum Qualitative Sent. js13 10:20 Lipase Sent. js13 10:20 Liver Profile Sent. js13 10:20 Inserted saline lock: 18 gauge in right antecubital area and blood collected. The js13 patient tolerated the procedure well. No procedures done that require assistance. Labs drawn. (by ED staff). Sent per order to lab. 10:50 Cheryl Oro PA-C is PHCP. dt4 10:51 Patient visited by Cheryl Oro PA-C. dt4 11:12 The patient / caregiver is instructed regarding the plan of care and ED course. ms18 Property :Personal belongings accompany Pt. 11:14 Patient visited by Marybeth Pulliam RN. ms18 11:21 Urine Culture Sent. ms18 11:38 Patient visited by Marybeth Pulliam RN. ms18 12:39 Patient visited by Marybeth Pulliam,RN. ms18 13:19 Patient visited by Marybeth Pluliam,RN. ms18 14:06 Discontinued IV lock intact, bleeding controlled, pressure dressing applied, No ms18 redness/swelling at site. 14:11 CT ABD & PELVIS: IV and Oral Contrast Returned. EDMS 06/26 10:04 T-Sheet-- Draft Copy was scanned into eventblimp and attached to record. gb 10:04 Radiology Report was scanned into eventblimp and attached to record. gb Administered Medications: 06/25 10:18 Drug: NS 0.9% 1000 ml [sodium chloride 0.9 % intravenous solution] Route: IV; Rate: mcp bolus; Site: right antecubital; 11:57 Follow up: IV Status: Completed infusion srm 10:18 Drug: Ondansetron 4 mg [ondansetron HCl 2 mg/mL intravenous solution (2 mL)] Route: mcp IVP; Site: right antecubital; 10:35 Drug: Diatrizoate Meglumine & Sodium 10 ml [diatrizoate meglumine and diat.sodium 66 mcp %-10 % oral solution (10 mL)] Route: PO; 11:21 Drug: Ondansetron 4 mg [ondansetron HCl 2 mg/mL intravenous solution (2 mL)] Route: ms18 IVP; Site: right antecubital; 11:39 Not Given (PT states that she cannot finish the gastrografin, provider aware. Ct ms18 notified. ): Diatrizoate Meglumine & Sodium Liquid 10 ml PO once; mix in 290cc of water 13:19 Drug: Dicyclomine 40 mg [dicyclomine 10 mg capsule (4 caps)] Route: PO; ms18 13:20 Drug: Tigan 200 mg [Tigan 100 mg/mL intramuscular solution (2 mL)] Route: IM; Site: ms18 right gluteus; Intake: 11:58 IV: 1000.00ml (NS); Total: 1000.00ml. srm Order Results: Lab Order: Amylase; SPEC'M 06/25/16 10:17 Test: AMYLASE; Value: 27; Range: 25-115; Units: U/L; Status: F Lab Order: Basic Metabolic Profile; SPEC'M 06/25/16 10:17 Test: GLUCOSE, FASTING; Value: 107; Range: 70-105; Abnormal: Above high normal; Units: MG/DL; Status: F Test: BLOOD UREA NITROGEN; Value: 12; Range: 7-18; Units: MG/DL; Status: F Test: CREATININE FOR GFR; Value: 0.87; Range: 0.55-1.02; Units: MG/DL; Status: F Test: SODIUM LEVEL; Range: 136-145; Units: MEQ/L; Status: I Test: POTASSIUM SERUM; Range: 3.5-5.1; Units: MEQ/L; Status: I Test: CHLORIDE LEVEL; Range: 98-107; Units: MEQ/L; Status: I Test: CARBON DIOXIDE LEVEL; Range: 21-32; Units: MEQ/L; Status: I Test: ANION GAP; Range: 8-16; Units: MEQ/L; Status: I Test: CALCIUM LEVEL; Range: 8.5-10.1; Units: MG/DL; Status: I Test: GLOMERULAR FILTRATION RATE; Value: > 60.0; Range: >60; Status: F Test: SODIUM LEVEL; Value: 139; Range: 136-145; Units: MEQ/L; Status: F Test: POTASSIUM SERUM; Value: 4.0; Range: 3.5-5.1; Units: MEQ/L; Status: F Test: CHLORIDE LEVEL; Value: 105; Range: 98-107; Units: MEQ/L; Status: F Test: CARBON DIOXIDE LEVEL; Value: 21; Range: 21-32; Units: MEQ/L; Status: F Test: ANION GAP; Value: 13; Range: 8-16; Units: MEQ/L; Status: F Test: CALCIUM LEVEL; Value: 9.2; Range: 8.5-10.1; Units: MG/DL; Status: F Test Note: ; Units are mL/min/1.73 m2 Chronic Kidney Disease Staging per NKF: Stage I & II GFR >=60 Normal to Mildly Decreased Stage III GFR 30-59 Moderately Decreased Stage IV GFR 15-29 Severely Decreased Stage V GFR <15 Very Little GFR Left ESRD GFR <15 on COMMUNITY SUPPORT ASSOCIATE Lab Order: CBC with Diff; SPEC'M 06/25/16 10:17 Test: WHITE BLOOD COUNT; Value: 18.3; Range: 4.0-10.0; Abnormal: Above high normal; Units: K/mm3; Status: F Test: RED BLOOD COUNT; Value: 5.18; Range: 4.00-5.40; Units: M/mm3; Status: F Test: HEMOGLOBIN; Value: 14.2; Range: 12.0-16.0; Units: g/dl; Status: F Test: HEMATOCRIT; Value: 42.3; Range: 36.0-47.0; Units: %; Status: F Test: MEAN CORPUSCULAR VOLUME; Value: 81.6; Range: 80.0-96.0; Units: fl; Status: F Test: MEAN CORPUSCULAR HEMOGLOBIN; Value: 27.5; Range: 27.0-33.0; Units: pg; Status: F Test: MEAN CORPUSCULAR HGB CONC; Value: 33.7; Range: 32.0-36.5; Units: g/dl; Status: F Test: RED CELL DISTRIBUTION WIDTH; Value: 12.0; Range: 11.5-14.5; Units: %; Status: F Test: PLATELET COUNT, AUTOMATED; Value: 339; Range: 150-450; Units: k/mm3; Status: F Test: NEUTROPHILS %; Value: 94.1; Range: 36.0-66.0; Abnormal: Above high normal; Units: %; Status: F Test: LYMPH %; Value: 2.5; Range: 24.0-44.0; Abnormal: Below low normal; Units: %; Status: F Test: MONO %; Value: 2.1; Range: 0.0-5.0; Units: %; Status: F Test: EOS %; Value: 0.8; Range: 0.0-3.0; Units: %; Status: F Test: BASO %; Value: 0.1; Range: 0.0-1.0; Units: %; Status: F Test: LARGE UNSTAINED CELL %; Value: 0.4; Range: 0.0-4.0; Units: %; Status: F Test: NEUTROPHILS #; Value: 17.2; Range: 1.8-7.7; Abnormal: Above high normal; Units: K/mm3; Status: F Test: LYMPH #; Value: 0.5; Range: 1.5-6.5; Abnormal: Below low normal; Units: K/mm3; Status: F Test: MONO #; Value: 0.4; Range: 0.0-0.8; Units: K/mm3; Status: F Test: EOS #; Value: 0.1; Range: 0.0-0.50; Units: K/mm3; Status: F Test: BASO #; Value: 0.0; Range: 0.0-0.2; Units: K/mm3; Status: F Test: LARGE UNSTAINED CELL #; Value: 0.1; Range: 0.0-0.4; Units: K/mm3; Status: F Lab Order: HCG,Serum Qualitative; SPEC'M 06/25/16 10:17 Test: HCG, SERUM QUALITATIVE; Value: NEGATIVE; Range: NEGATIVE; Status: F Lab Order: Lipase; [facility]06/25/16 10:17 Test: LIPASE; Value: 88; Range: 73-393; Units: U/L; Status: F Lab Order: Liver Profile; [facility]06/25/16 10:17 Test: AST/SGOT; Value: 12; Range: 15-37; Abnormal: Below low normal; Units: U/L; Status: F Test: ALT/SGPT; Value: 38; Range: 12-78; Units: U/L; Status: F Test: ALKALINE PHOSPHATASE; Value: 106; Range: 45-117; Units: U/L; Status: F Test: BILIRUBIN,TOTAL; Value: 0.5; Range: 0.2-1.0; Units: MG/DL; Status: F Test: BILIRUBIN,DIRECT; Value: < 0.1; Range: 0.0-0.2; Units: MG/DL; Status: F Test: TOTAL PROTEIN; Value: 7.9; Range: 6.4-8.2; Units: GM/DL; Status: F Test: ALBUMIN; Value: 3.8; Range: 3.2-5.2; Units: GM/DL; Status: F Test: ALBUMIN/GLOBULIN RATIO; Value: 0.93; Range: 1.00-1.93; Abnormal: Below low normal; Status: F Lab Order: Urine Culture; SPEC' 06/25/16 11:19 Test: URINE CULTURE; Value: <EXTERNAL COMMENT eCWMed> FULL REPORT IN LAB NOTES (eCW and Medent).; Status: F Test: URINE CULTURE; Value: URINE CULTURE RESULT NO GROWTH; Status: F Lab Order: URINALYSIS MANUAL; SPEC'M 06/25/16 11:19 Test: APPEARANCE, URINE MANUAL; Value: CLEAR; Range: CLEAR; Status: F Test: COLOR, URINE MANUAL; Value: YELLOW; Range: YELLOW; Status: F Test: PH,URINE MAN; Value: 8.0; Range: 5.0 - 9.0; Units: UNITS; Status: F Test: SPECIFIC GRAVITY,URINE MANUAL; Value: 1.023; Range: 1.002-1.035; Status: F Test: PROTEIN, URINE MANUAL; Value: TRACE; Range: NEGATIVE; Abnormal: Above high normal; Units: mg/dL; Status: F Test: GLUCOSE, URINE (UA) MANUAL; Value: NEGATIVE; Range: NEGATIVE; Units: mg/dL; Status: F Test: KETONE, URINE MANUAL; Value: NEGATIVE; Range: NEGATIVE; Units: mg/dL; Status: F Test: UROBILINOGEN, URINE MANUAL; Value: NORMAL; Range: NORMAL; Units: mg/dl; Status: F Test: BILIRUBIN, URINE MANUAL; Value: NEGATIVE; Range: NEGATIVE; Status: F Test: NITRITE, URINE MANUAL; Value: NEGATIVE; Range: NEGATIVE; Status: F Test: LEUKOCYTE ESTERASE, URINE MAN; Value: NEGATIVE; Range: NEGATIVE; Status: F Test: BLOOD URINE MANUAL; Value: TRACE; Range: NEGATIVE; Abnormal: Above high normal; Status: F Lab Order: MICROSCOPIC, URINE; SPEC'M 06/25/16 11:19 Test: WBC, URINE; Value: 0-1; Range: 0-3; Units: /hpf; Status: F Test: RBC, URINE; Value: 1-3; Range: 0-3; Units: /hpf; Status: F Test: SQUAMOUS EPITHELIAL CELL URINE; Value: SMALL AMOUNT; Range: SMALL AMT; Units: /hpf; Status: F Test: BACTERIA, URINE; Value: SMALL AMOUNT; Range: NONE; Abnormal: Above high normal; Status: F Test: HYALINE CAST, URINE; Value: NONE SEEN; Range: 0-1; Units: /lpf; Status: F Test: MICROSCOPIC EXAM; Value: PERFORMED; Status: F Radiology Order: CT ABD & PELVIS: IV and Oral Contrast Test: CT ABD & PELVIS: IV and Oral Contrast REASON FOR EXAMINATION: Abdomen Pain; CT ABDOMEN AND PELVIS WITH IV BUT WITHOUT ORAL CONTRAST:; ; HISTORY: Abdominal pain.; ; Comparison study is from June 05, 2008.; ; CT contrast dose: 100 mL of Isovue 370 is administered intravenously.; ; CT FINDINGS: Preliminary smoking pipe liner radiograph is unremarkable. The lung bases are; clear. There is no evidence of pleural effusion or upper abdominal ascites. The; liver and spleen are normal in size and homogeneous in texture. There is a small; accessory splenule. Pancreas shows no abnormality. No adrenal lesion is seen on; either side. The kidneys enhance symmetrically and are morphologically intact.; Normal caliber aorta is seen. No retroperitoneal mass or adenopathy is seen. No; abdominal wall defect is observed. Small and large intestinal bowel loops are; normal in the abdomen and pelvis. No uterine or ovarian abnormality is seen. A; vaginal diaphragm is noted in place. No bony destructive lesion is seen. There; is no evidence of inflammation in the region of the appendix or cecal tip. A; short normal appearing appendix is seen.; ; IMPRESSION: Negative CT study of the abdomen and pelvis. Normal appendix.; Vaginal diaphragm noted in place incidentally. No acute abnormality.; ; ; Signed by; Scott Cuenca MD 06/25/2016 02:07 P; Outcome: 13:49 Discharge ordered by Provider. dt4 14:06 Discharge Assessment: Patient awake, alert and oriented x 3. No cognitive and/or ms18 functional deficits noted. Patient verbalized understanding of disposition instructions. patient administered narcotics - no. The following High Risk Discharge criteria are identified: None. Discharged to home ambulatory. Condition: good Condition: stable Condition: improved. Discharge instructions given to patient, Instructed on discharge instructions, follow up and referral plans. medication usage, Demonstrated understanding of instructions, medications, Pt was receptive of discharge instructions/ teaching. Prescriptions given X 2, Work note provided to patient. CT Study completed. 14:09 Patient left the ED. ms18 Signatures: Dispatcher [employer] EDMS Tanisha Cardozo MD MD ml Michelson, Staci, Salina Juan RN, RN RN mcp Murphy, Jane, LOADER MAGAZINE GRINDER LOADER MAGAZINE GRINDER jam1 Ailyn Steel, Reg Reg Kelley Tomlin RN RN js13 BoshartBrooke Marlynn mm15 Nayla Ring,RN RN ead Cheryl Oro PA-C PAAngela dt4 Marybeth PulliamRN RN ms18 Corrections: (The following items were deleted from the chart) 11:43 11:21 URINALYSIS+LAB sent. ms18 EDMS Chart Complete MTDD
== END 2016-06-25 14:09 | disposition home or self-care (01) ==
LOC: M ED 09:34
DX: R10.9 Unspecified abdominal pain (principal); R11.2 Nausea with vomiting, unspecified; R19.7 Diarrhea, unspecified; K21.9 Gastro-esophageal reflux disease without esophagitis; Z79.899 Other long term (current) drug therapy
CPT/HCPCS: 36415; 74177; 80048; 80076; 81000; 82150; 83690; 84703; 85025; 87086; 96361; 96372; 96374; 96376; 99284; J2405; J3250; Q9963; Q9967

== ENCOUNTER → 2016-11-05 | Outpatient (CLI) | payer OTHER ==
[2016-11-06 11:40] LABS: COMPLEMENT C4 48.6 MG/DL (10-40); FREE T4 1.23 NG/DL (0.76-1.46)
[2016-11-12 00:06] LABS: ANTI-SACCHAROMYCES CEREV. IgA <20.0 Units (0.0-24.9); ANTI-SACCHAROMYCES CEREV. IgG <20.0 Units (0.0-24.9); C1 ESTERASE INHIB. FUNCTIONAL 77 (.)
== END ==
LOC: M LRY 16:21
PROVIDERS: ATTEND Internal Medicine Gastroenterology
DX: K59.1 Functional diarrhea (principal); R10.30 Lower abdominal pain, unspecified; K44.9 Diaphragmatic hernia without obstruction or gangrene; K21.9 Gastro-esophageal reflux disease without esophagitis; R11.2 Nausea with vomiting, unspecified

== ENCOUNTER 2016-12-18 11:21 | Emergency (ER) | payer OTHER ==
[~2016-12-18] VITALS: Ht 165.1 cm; Wt 95.4 kg
[2016-12-18 11:22] VITALS: BP 129/77
== END 2016-12-18 11:30 | disposition left against medical advice (07) ==
LOC: M ED 11:21
DX: Z53.29 Procedure and treatment not carried out because of patient's decision for other reasons (principal)

== ENCOUNTER → 2017-06-05 | Outpatient (REF) | payer OTHER ==
[2017-06-05 21:36] LABS: CHLAMYDIA DNA AMPLIFICATION NEGATIVE (NEGATIVE); GC DNA AMPLIFICATION NEGATIVE (NEGATIVE)
== END ==
LOC: M SFHCLERA 12:56
DX: N30.01 Acute cystitis with hematuria (principal)

== ENCOUNTER 2017-06-29 02:47 | Emergency (ER) | payer OTHER ==
[2017-06-29] MEDS: NS 1,000 ML IV (03:45)
[2017-06-29 04:15] LABS: BASO # 0.1 10^3/uL (0.0-0.2); BASO % 0.7 % (0.0-1.0); EOS # 0.1 10^3/uL (0.0-0.50); EOS % 0.6 % (0.0-3.0); HEMATOCRIT 38.6 % (36.0-47.0); HEMOGLOBIN 12.7 g/dl (12.0-16.0); IMMATURE GRANULOCYTE % 0.4 % (0-0); LYMPH # 2.4 10^3/uL (1.5-6.5); LYMPH % 29.4 % (24.0-44.0); MEAN CORPUSCULAR HEMOGLOBIN 26.8 pg (27.0-33.0); MEAN CORPUSCULAR HGB CONC 32.9 g/dl (32.0-36.5); MEAN CORPUSCULAR VOLUME 81.6 fl (80.0-96.0); MONO # 0.6 10^3/uL (0.0-0.8); MONO % 7.4 % (0.0-5.0); NEUTROPHILS % 61.5 % (36.0-66.0); PLATELET COUNT, AUTOMATED 325 10^3/uL (150-450); RED BLOOD COUNT 4.73 10^6/uL (4.00-5.40); RED CELL DISTRIBUTION WIDTH 12.1 % (11.5-14.5); VENOUS BASE EXCESS -2.5 (-2.0-2.0); VENOUS O2 SATURATION 97.6 % (60.0-80.0); VENOUS PARTIAL PRESSURE CO2 32.4 mmHg (38.0-50.0); VENOUS PARTIAL PRESSURE O2 102.3 mmHg (30.0-50.0); VENOUS PH 7.429 UNITS (7.330-7.430); VENOUS STANDARD HCO3 22.4 MEQ/L; WHITE BLOOD COUNT 8.2 10^3/uL (4.0-10.0)
[2017-06-29 04:35] LABS: CONTROL LINE HCG INT CTR LINE PRESENT; HCG, SERUM QUALITATIVE NEGATIVE (NEGATIVE)
[2017-06-29 04:39] LABS: OSMOLALITY SERUM 351 MOSM/KG (275-295)
[2017-06-29 04:49] LABS: AMPHETAMINES LEVEL URINE NEGATIVE (NEGATIVE); BARBITURATES URINE NEGATIVE (NEGATIVE); BENZODIAZEPINES URINE NEGATIVE (NEGATIVE); CANNABINOIDS URINE NEGATIVE (NEGATIVE); COCAINE METABOLITE URINE NEGATIVE (NEGATIVE); METHADONE URINE NEGATIVE (NEGATIVE); OPIATES URINE NEGATIVE (NEGATIVE); PHENCYCLIDINE URINE NEGATIVE (NEGATIVE)
[2017-06-29 04:59] LABS: ALBUMIN 4.1 GM/DL (3.2-5.2); ALBUMIN/GLOBULIN RATIO 1.32 (1.00-1.93); ALKALINE PHOSPHATASE 107 U/L (45-117); ALT/SGPT 38 U/L (12-78); ANION GAP 13 MEQ/L (8-16); AST/SGOT 20 U/L (7-37); BILIRUBIN,DIRECT < 0.1 MG/DL (0.0-0.2); BILIRUBIN,TOTAL 0.1 MG/DL (0.2-1.0); BLOOD UREA NITROGEN 9 MG/DL (7-18); CALCIUM LEVEL 8.7 MG/DL (8.5-10.1); CARBON DIOXIDE LEVEL 22 MEQ/L (21-32); CHLORIDE LEVEL 112 MEQ/L (98-107); CPK CREATINE PHOSPHOKINASE 109 U/L (26-192); ETHYL ALCOHOL (ETHANOL) 0.224 % (0.000-0.010); GLOMERULAR FILTRATION RATE > 60.0 (>60); GLUCOSE, FASTING 93 MG/DL (70-100); POTASSIUM SERUM 3.8 MEQ/L (3.5-5.1); SODIUM LEVEL 147 MEQ/L (136-145); TOTAL PROTEIN 7.2 GM/DL (6.4-8.2); TROPONIN I < 0.02 NG/ML (< 0.10)
[2017-06-29 05:03] LABS: ACETAMINOPHEN LEVEL < 2.0 UG/ML (10.0-30.0); MB/CK RELATIVE INDEX 0.91 (< OR =4)
[2017-06-29] MEDS: ONDANSETRON 4MG/2ML VIAL (J2405) IV (07:43)
== END 2017-06-29 08:10 | disposition home or self-care (01) ==
LOC: M ED 02:47
DX: F10.929 Alcohol use, unspecified with intoxication, unspecified (principal)
CPT/HCPCS: J2405

== ENCOUNTER 2017-07-10 17:23 | Emergency (ER) | payer OTHER ==
[2017-07-10] MEDS: NS 1,000 ML IV ×4 (17:47→19:20)
[2017-07-10] MEDS: MORPHINE 2 MG/ML 1ML SYRINGE (J2270) IV ×2 (17:48)
[2017-07-10] MEDS: ONDANSETRON 4MG/2ML VIAL (J2405) IV ×2 (17:48)
[2017-07-10 17:59] LABS: BASO # 0.1 10^3/uL (0.0-0.2); BASO % 0.8 % (0.0-1.0); EOS # 0.1 10^3/uL (0.0-0.50); EOS % 0.9 % (0.0-3.0); HEMATOCRIT 39.2 % (36.0-47.0); HEMOGLOBIN 12.6 g/dl (12.0-16.0); IMMATURE GRANULOCYTE % 0.4 % (0-3.0); LYMPH # 3.4 10^3/uL (1.5-6.5); LYMPH % 29.7 % (24.0-44.0); MEAN CORPUSCULAR HEMOGLOBIN 26.6 pg (27.0-33.0); MEAN CORPUSCULAR HGB CONC 32.1 g/dl (32.0-36.5); MEAN CORPUSCULAR VOLUME 82.9 fl (80.0-96.0); MONO % 8.6 % (0.0-5.0); NEUTROPHILS # 6.9 10^3/uL (1.8-7.7); NEUTROPHILS % 59.6 % (36.0-66.0); PLATELET COUNT, AUTOMATED 306 10^3/uL (150-450); RED BLOOD COUNT 4.73 10^6/uL (4.00-5.40); RED CELL DISTRIBUTION WIDTH 12.2 % (11.5-14.5); WHITE BLOOD COUNT 11.6 10^3/uL (4.0-10.0)
[2017-07-10] MEDS ORDERED: MORPHINE 4 MG/ML 1ML VIAL (J2270) As Ordered ×2 (17:59)
[2017-07-10] MEDS: MORPHINE 4 MG/ML 1ML VIAL (J2270) IV ×2 (18:08)
[2017-07-10 18:16] LABS: CONTROL LINE HCG INT CTR LINE PRESENT; HCG, SERUM QUALITATIVE NEGATIVE (NEGATIVE)
[2017-07-10 18:25] LABS: ALBUMIN 4.1 GM/DL (3.2-5.2); ALBUMIN/GLOBULIN RATIO 1.32 (1.00-1.93); ALKALINE PHOSPHATASE 107 U/L (45-117); ALT/SGPT 36 U/L (12-78); ANION GAP 12 MEQ/L (8-16); AST/SGOT 15 U/L (7-37); BILIRUBIN,DIRECT < 0.1 MG/DL (0.0-0.2); BILIRUBIN,TOTAL 0.2 MG/DL (0.2-1.0); BLOOD UREA NITROGEN 14 MG/DL (7-18); CALCIUM LEVEL 9.1 MG/DL (8.5-10.1); CARBON DIOXIDE LEVEL 22 MEQ/L (21-32); CHLORIDE LEVEL 109 MEQ/L (98-107); CREATININE FOR GFR 0.95 MG/DL (0.55-1.30); GLOMERULAR FILTRATION RATE > 60.0 (>60); GLUCOSE, FASTING 90 MG/DL (70-100); LIPASE 112 U/L (73-393); POTASSIUM SERUM 3.9 MEQ/L (3.5-5.1); SODIUM LEVEL 143 MEQ/L (136-145); TOTAL PROTEIN 7.2 GM/DL (6.4-8.2)
[2017-07-10] MEDS: KETOROLAC 30 MG/ML VIAL (J1885) IV ×2 (18:45)
[2017-07-10] MEDS: PROMETHAZINE INJ 25 MG/ML VIAL (J2550) IV ×2 (18:45)
[2017-07-10 19:10] LABS: AMORPHOUS SEDIMENT RFX SMALL (NEGATIVE); KETONE, URINE AUTO RFX NEGATIVE (NEGATIVE); LEUKOCYTE ESTERASE UR AUTO RFX NEGATIVE (NEGATIVE); MUCUS, URINE RFX SMALL (NEGATIVE); NITRITE, URINE AUTO RFX NEGATIVE (NEGATIVE); RBC, URINE AUTO RFX 3 /HPF (0-3); SPECIFIC GRAVITY UR AUTO RFX 1.014 (1.002-1.035); SQUAM EPITHELIAL CELL UR AURFX 1 /HPF (0-6); WBC, URINE AUTO RFX 4 /HPF (0-3)
[2017-07-10] MEDS: TAMSULOSIN 0.4 MG CAP PO ×2 (20:14)
== END 2017-07-10 20:29 | disposition home or self-care (01) ==
LOC: M ED 17:23
DX: N13.2 Hydronephrosis with renal and ureteral calculous obstruction (principal); F41.9 Anxiety disorder, unspecified; Z87.42 Personal history of other diseases of the female genital tract; Z86.69 Personal history of other diseases of the nervous system and sense organs; Z84.1 Family history of disorders of kidney and ureter
CPT/HCPCS: J2270; J2405

== ENCOUNTER → 2017-10-29 | Outpatient (CLI) | payer OTHER | LOC: M RAD 17:00 | DX: N94.6 Dysmenorrhea, unspecified (principal) | CPT/HCPCS: 76856 ==

== ENCOUNTER → 2018-02-23 | Outpatient (CLI) | payer OTHER ==
[2018-02-23 20:35] LABS: HCG, SERUM QUANTITATIVE < 1.0 MIU/ML
== END ==
LOC: M WUC 17:43
DX: N91.2 Amenorrhea, unspecified (principal)
CPT/HCPCS: 84702

== ENCOUNTER → 2018-04-11 | Outpatient (REF) | payer OTHER | LOC: M SFHCLERA 13:03 | DX: J02.9 Acute pharyngitis, unspecified (principal) ==

== ENCOUNTER → 2018-09-08 | Outpatient (REF) | payer OTHER ==
[~2018-09-08] MED LIST: FLOM0.4C39 PO; KETO10TAB PO; ZOFR4SOL PO
== END ==
LOC: M SFHCLERA 09:55
PROVIDERS: ATTEND Nurse Practitioner Family
DX: R11.10 Vomiting, unspecified (principal); J00 Acute nasopharyngitis [common cold]

== ENCOUNTER → 2018-10-01 | Outpatient (REF) | payer OTHER ==
[2018-10-01 12:39] LABS: BASO # 0.1 10^3/uL (0.0-0.2); BASO % 0.6 % (0.0-1.0); EOS # 0.1 10^3/uL (0.0-0.50); EOS % 0.6 % (0.0-3.0); HEMATOCRIT 40.3 % (36.0-47.0); LYMPH # 1.6 10^3/uL (1.5-6.5); LYMPH % 19.4 % (24.0-44.0); MEAN CORPUSCULAR HEMOGLOBIN 26.7 pg (27.0-33.0); MEAN CORPUSCULAR HGB CONC 32.3 g/dl (32.0-36.5); MEAN CORPUSCULAR VOLUME 82.9 fl (80.0-96.0); MONO # 0.4 10^3/uL (0.0-0.8); MONO % 5.5 % (0.0-5.0); NEUTROPHILS # 5.9 10^3/uL (1.8-7.7); NEUTROPHILS % 73.5 % (36.0-66.0); PLATELET COUNT, AUTOMATED 319 10^3/uL (150-450); RED BLOOD COUNT 4.86 10^6/uL (4.00-5.40)
[2018-10-01 12:52] LABS: ALBUMIN 3.3 GM/DL (3.2-5.2); ALT/SGPT 16 U/L (12-78); BILIRUBIN,TOTAL 0.2 MG/DL (0.2-1.0); BLOOD UREA NITROGEN 11 MG/DL (7-18); CARBON DIOXIDE LEVEL 24 MEQ/L (21-32); CHLORIDE LEVEL 108 MEQ/L (98-107); CHOLESTEROL LEVEL 180 MG/DL (<200); CHOLESTEROL RISK RATIO 3.461 (<5); CREATININE FOR GFR 0.81 MG/DL (0.55-1.30); FREE T4 1.11 NG/DL (0.76-1.46); GLOMERULAR FILTRATION RATE > 60.0 (>60); GLUCOSE, FASTING 81 MG/DL (70-100); HDL CHOLESTEROL 52 MG/DL (>40); LDL CHOLESTEROL 95 MG/DL (<100); NON-HDL-C 128 MG/DL; POTASSIUM SERUM 4.5 MEQ/L (3.5-5.1); SODIUM LEVEL 137 MEQ/L (136-145); TRIGLYCERIDES LEVEL 166 MG/DL (<150)
== END ==
LOC: M SFHCLERA 09:00
PROVIDERS: ATTEND Nurse Practitioner Family
DX: K21.9 Gastro-esophageal reflux disease without esophagitis (principal); R10.11 Right upper quadrant pain

== ENCOUNTER → 2018-10-15 | Outpatient (CLI) | payer OTHER ==
--- NOTE | 2018-10-15 11:50 | REP ---
Right upper quadrant sonography: History: Gastroesophageal reflux disease. Diarrhea. Esophagitis. Comparison study: Comparison CT study July 10, 2017. Findings: Scanning through the right upper quadrant of the abdomen demonstrates a normal sized, thin-walled gallbladder without evidence of stone or polyp. Common bile duct is normal measuring 0.3 cm in greatest diameter. No focal liver lesion is seen. Liver size is normal. No pancreatic abnormality is observed. No right renal abnormality is seen. There is no evidence of ascites. The right kidney measures 11.0 x 5.2 x 4.7 cm. Impression: Negative right upper quadrant sonography. Electronically Signed by Scott Cuenca MD 10/15/2018 11:41 A
== END ==
LOC: M LRY 08:33
PROVIDERS: ATTEND Nurse Practitioner Family
DX: K21.9 Gastro-esophageal reflux disease without esophagitis (principal)

== ENCOUNTER → 2018-12-08 | Outpatient (REF) | payer OTHER | LOC: M LAB REF 17:04 | PROVIDERS: ATTEND Physician Assistant Medical | DX: R19.8 Other specified symptoms and signs involving the digestive system and abdomen (principal) ==

== ENCOUNTER → 2019-01-07 | Outpatient (REF) | payer OTHER | LOC: M SFHCLERA 09:56 | PROVIDERS: ATTEND Nurse Practitioner Family | DX: J02.9 Acute pharyngitis, unspecified (principal) ==

== ENCOUNTER → 2019-01-12 | Outpatient (CLI) | payer OTHER ==
--- NOTE | 2019-01-12 10:50 | REP ---
Hepatobiliary scan and gallbladder ejection fraction: History: Nausea with vomiting. Technique: 6.6 mCi of technetium-99m mebrofenin was injected and sequential anterior images are acquired. 65 minutes after the mebrofenin injection, the patient consumed 8 ounces Ensure and an additional 60 minutes of imaging was acquired. Regions of interest are plotted around the gallbladder. Findings: The initial hepatocellular parenchymal uptake phase is normal and homogeneous. Intra- and extra-hepatic bile ducts are labeled by the 10 -minute image. The gallbladder is first labeled on the 10 -minute image. There is normal washout from the liver parenchyma into the gallbladder and small intestine on subsequent images. The gallbladder ejection fraction is 86 %. Values greater than 35 % are considered normal with this technique. Impression: Normal hepatobiliary scan and normal gallbladder ejection fraction. Electronically Signed by Scott Cuenca MD 01/12/2019 10:41 A
== END ==
LOC: M RAD 07:39
PROVIDERS: ATTEND Physician Assistant Medical
DX: R11.2 Nausea with vomiting, unspecified (principal)

== ENCOUNTER → 2019-02-08 | Outpatient (CLI) | payer OTHER ==
--- NOTE | 2019-02-13 15:06 | REP ---
SITZ MARKER STUDY, AP ABDOMEN/PELVIS: There is a single sitz marker in the right colon. There are two sitz markers in the descending colon. There are four sitz markers in the rectosigmoid region. Electronically Signed by Haja Valentino DO 02/13/2019 03:21 P
== END ==
LOC: M RAD 11:38
PROVIDERS: ATTEND Physician Assistant Medical
DX: R19.8 Other specified symptoms and signs involving the digestive system and abdomen (principal)

== ENCOUNTER 2019-04-02 12:26 | Day surgery (SDC) | payer OTHER ==
[~2019-04-02] VITALS: Ht 165.1 cm; Wt 102.1 kg
[~2019-04-02 12:26] MED LIST changes: +MIRA3350 PO; +NUVAMIS2 VA; +OMEP20CA4 PO; +ONDA4TAB5 PO; +RANI150T PO
[2019-04-02] MEDS ORDERED: NS 1,000 ML IV ONE (14:00)
[2019-04-02] MEDS ORDERED: PROPOFOL 500 MG/50 ML VIAL As Ordered ONE (14:42)
[2019-04-02] MEDS ORDERED: fentaNYL 100 MCG/2 ML INJECTION (J3010) As Ordered ONE (14:42)
[2019-04-02] MEDS ORDERED: LIDOCAINE 2% INJ 100 MG/5 ML SDV (FOR ANES.) As Ordered ONE (14:42)
--- NOTE | 2019-04-02 15:15 | ROOR ---
Patient Name: Miri Leija Procedure Date: 04/02/2019 2:36 PM Date of : 1990 Age: 28 Room: [facility] Gender: Female Note Status: Finalized Procedure: Upper GI endoscopy Indications: Dyspepsia, Nausea with vomiting Providers: Andres Andino MD Referring MD: [facility], Admin., Federica HOOPER Requesting Provider: Medicines: Monitored Anesthesia Care Complications: No immediate complications. Procedure: Pre-Anesthesia Assessment: - Prior to the procedure, a History and Physical was performed, and patient medications and allergies were reviewed. The patient is competent. The risks and benefits of the procedure and the sedation options and risks were discussed with the patient. All questions were answered and informed consent was obtained. Patient identification and proposed procedure were verified by the physician, the nurse and the anesthesiologist in the procedure room. Mental Status Examination: alert and oriented. Airway Examination: normal oropharyngeal airway and neck mobility. Respiratory Examination: clear to auscultation. CV Examination: normal. Prophylactic Antibiotics: The patient does not require prophylactic antibiotics. Prior Anticoagulants: The patient has taken no previous anticoagulant or antiplatelet agents. ASA Grade Assessment: II - A patient with mild systemic disease. After reviewing the risks and benefits, the patient was deemed in satisfactory condition to undergo the procedure. The anesthesia plan was to use monitored anesthesia care (MAC). Immediately prior to administration of medications, the patient was re-assessed for adequacy to receive sedatives. The heart rate, respiratory rate, oxygen saturations, blood pressure, adequacy of pulmonary ventilation, and response to care were monitored throughout the procedure. The physical status of the patient was re-assessed after the procedure. The Endoscope was introduced through the mouth, and advanced to the second part of duodenum. The upper GI endoscopy was accomplished without difficulty. The patient tolerated the procedure well. Findings: Mucosal changes including feline appearance, white plaques and circumferential folds were found in the middle third of the esophagus and in the lower third of the esophagus. Biopsies were obtained from the proximal and distal esophagus with cold forceps for histology of suspected eosinophilic esophagitis. Verification of patient identification for the specimen was done by the physician and nurse using the patient's name, date and medical record number. Scattered mild inflammation characterized by erythema and granularity was found in the gastric antrum. Biopsies were taken with a cold forceps for Helicobacter pylori testing. The duodenal bulb and second portion of the duodenum were normal. Biopsies for histology were taken with a cold forceps for evaluation of celiac disease. Impression: - Esophageal mucosal changes suspicious for eosinophilic esophagitis. Biopsied. - Gastritis. Biopsied. - Normal duodenal bulb and second portion of the duodenum. Biopsied. Recommendation: - Patient has a contact number available for emergencies. The signs and symptoms of potential delayed complications were discussed with the patient. Return to normal activities tomorrow. Written discharge instructions were provided to the patient. - Resume previous diet. - Continue present medications. - Await pathology results. - Telephone GI clinic for pathology results in 2 weeks. - Return to primary care physician. Andres Andino MD Andres Andino MD 04/02/2019 3:14:39 PM Electronically signed by Andres Andino MD Number of Addenda: 0 Note Initiated On: 04/02/2019 2:36 PM Estimated Blood Loss: Estimated blood loss was minimal.
--- NOTE | 2019-04-02 15:21 | ROOR ---
Patient Name: Miri Leija Procedure Date: 04/02/2019 2:37 PM Date of : 1990 Age: 28 Room: [facility] Gender: Female Note Status: Finalized Procedure: Colonoscopy Indications: Change in bowel habits, Weight loss Providers: Andres Andino MD Referring MD: [facility], Admin., Federica HOOPER Requesting Provider: Medicines: Monitored Anesthesia Care Complications: No immediate complications. Procedure: Pre-Anesthesia Assessment: - Prior to the procedure, a History and Physical was performed, and patient medications and allergies were reviewed. The patient is competent. The risks and benefits of the procedure and the sedation options and risks were discussed with the patient. All questions were answered and informed consent was obtained. Patient identification and proposed procedure were verified by the physician, the nurse and the anesthesiologist in the procedure room. Mental Status Examination: alert and oriented. Airway Examination: normal oropharyngeal airway and neck mobility. Respiratory Examination: clear to auscultation. CV Examination: normal. Prophylactic Antibiotics: The patient does not require prophylactic antibiotics. Prior Anticoagulants: The patient has taken no previous anticoagulant or antiplatelet agents. ASA Grade Assessment: II - A patient with mild systemic disease. After reviewing the risks and benefits, the patient was deemed in satisfactory condition to undergo the procedure. The anesthesia plan was to use monitored anesthesia care (MAC). Immediately prior to administration of medications, the patient was re-assessed for adequacy to receive sedatives. The heart rate, respiratory rate, oxygen saturations, blood pressure, adequacy of pulmonary ventilation, and response to care were monitored throughout the procedure. The physical status of the patient was re-assessed after the procedure. The Colonoscope was introduced through the anus and advanced to the terminal ileum, with identification of the appendiceal orifice and IC valve. The colonoscopy was performed without difficulty. The patient tolerated the procedure well. The quality of the bowel preparation was good except the ascending colon was fair. The terminal ileum, ileocecal valve, appendiceal orifice, and rectum were photographed. Scope insertion time was 3 minutes. Scope withdrawal time was 8 minutes. The total duration of the procedure was 11 minutes. Findings: The perianal and digital rectal examinations were normal. The terminal ileum appeared normal. A moderate amount of semi-solid stool was found from hepatic flexure to cecum, interfering with visualization. Lavage of the area was performed using a large amount of sterile water, resulting in clearance with fair visualization. Normal mucosa was found in the entire colon. Biopsies for histology were taken with a cold forceps from the right colon, left colon and rectosigmoid colon for evaluation of microscopic colitis. Verification of patient identification for the specimen was done by the physician and nurse using the patient's name, date and medical record number. Estimated blood loss was minimal. Non-bleeding external and internal hemorrhoids were found during anoscopy. The hemorrhoids were small. Retroflexion in the rectum was not performed due to anatomy. Impression: - The examined portion of the ileum was normal. - Stool from hepatic flexure to cecum. - Normal mucosa in the entire examined colon. Biopsied. - Non-bleeding external and internal hemorrhoids. Recommendation: - Patient has a contact number available for emergencies. The signs and symptoms of potential delayed complications were discussed with the patient. Return to normal activities tomorrow. Written discharge instructions were provided to the patient. - Resume previous diet. - Continue present medications. - Await pathology results. - Repeat colonoscopy at age 52 for screening purposes. - Telephone GI clinic for pathology results in 2 weeks. - Return to primary care physician. Andres Andino MD Andres Andino MD 04/02/2019 3:20:51 PM Electronically signed by Andres Andino MD Number of Addenda: 0 Note Initiated On: 04/02/2019 2:37 PM Estimated Blood Loss: Estimated blood loss was minimal.
[2019-04-02 15:35] VITALS: BP 141/91
== END 2019-04-02 16:00 | disposition home or self-care (01) ==
LOC: M OPP 12:26
PROVIDERS: ATTEND Internal Medicine Gastroenterology
DX: K64.8 Other hemorrhoids (principal); R19.4 Change in bowel habit; R63.4 Abnormal weight loss; K22.8 Other specified diseases of esophagus; K29.70 Gastritis, unspecified, without bleeding; R11.2 Nausea with vomiting, unspecified; Z79.899 Other long term (current) drug therapy
CPT/HCPCS: 43239; 45380; 88305; J3010

== ENCOUNTER → 2019-09-27 | Outpatient (CLI) | payer OTHER ==
[~2019-09-27] MED LIST changes: +OMEP1CAP73 PO; -OMEP20CA4 PO; +ONDA-83 PO; -ONDA4TAB5 PO
== END ==
LOC: M LABSMTC 12:29
PROVIDERS: ATTEND Family Medicine
DX: Z11.59 Encounter for screening for other viral diseases (principal); Z20.828 Contact with and (suspected) exposure to other viral communicable diseases

== ENCOUNTER → 2020-09-19 | Outpatient (REF) | payer OTHER ==
[2020-09-19 16:55] LABS: FOLLICLE STIMULATING HORMONE 7.8 mIU/mL; LUTEINIZING HORMONE 2.7 mIU/mL; PROGESTERONE 0.87 NG/ML; PROLACTIN 8.2 NG/ML
== END ==
LOC: M PLALAB 14:19
PROVIDERS: ATTEND Specialist
DX: N92.6 Irregular menstruation, unspecified (principal)

== ENCOUNTER → 2020-09-21 | Outpatient (CLI) | payer OTHER ==
--- NOTE | 2020-09-21 13:56 | REP ---
INDICATION: N92.6 IRREGULAR BLEEDING COMPARISON: None. TECHNIQUE: Transabdominal pelvic ultrasound followed by transvaginal examination for better evaluation of the endometrium and adnexa with color Doppler evaluation of the ovaries. FINDINGS: Bladder is collapsed Anteverted uterus measures 6.0 x 3.3 x 4.0 cm. The endometrial complex measures 4 mm thickness. Few small subcentimeter nabothian cysts are identified in the cervix Bilateral ovaries are normal in vascularity without evidence for torsion. Right ovary measures 2.8 x 2.7 x 2.6 cm with 1.4 x 1.8 x 1.8 cm complex presumed hemorrhagic involuting follicle; R I = 0.60. Left ovary measures 3.0 x 1.6 x 1.9 cm with 1.5 x 1.3 x 1.2 cm complex presumed hemorrhagic involuting follicle/cyst; R I = 0.50. Small amount of pelvic free fluid is nonspecific and likely physiologic. IMPRESSION: 1. Essentially normal uterus. 2. Complex cystic lesions in the bilateral ovaries likely involuting physiologic cysts/follicles. Consider re-evaluation in 4-6 weeks to evaluate for resolution if the patient remains symptomatic. <Electronically signed by Carlos Robison > 09/21/20 [id number]
== END ==
LOC: M WHC 12:55
PROVIDERS: ATTEND Specialist
DX: N92.6 Irregular menstruation, unspecified (principal)

== ENCOUNTER 2020-10-24 10:34 | Emergency (ER) | payer OTHER ==
[~2020-10-24] VITALS: Ht 165.1 cm; Wt 102.3 kg
[2020-10-24] MEDS ORDERED: CLOMID (10:39)
[2020-10-24 11:10] LABS: HEMATOCRIT 39.6 % (36.0-47.0); HEMOGLOBIN 12.9 g/dl (12.0-15.5); MEAN CORPUSCULAR HEMOGLOBIN 27.3 pg (27.0-33.0); MEAN CORPUSCULAR HGB CONC 32.6 g/dl (32.0-36.5); MEAN CORPUSCULAR VOLUME 83.9 fl (80.0-96.0); PLATELET COUNT, AUTOMATED 326 10^3/uL (150-450); RED BLOOD COUNT 4.72 10^6/uL (4.00-5.40); WHITE BLOOD COUNT 8.1 10^3/uL (4.0-10.0)
[2020-10-24] MEDS ORDERED: ISOVUE-370 76% 100ML VIAL As Ordered ONE (11:29)
[2020-10-24] MEDS ORDERED: KETOROLAC 30 MG/ML 1ML VIAL IV ONE (11:30)
[2020-10-24] MEDS ORDERED: ONDANSETRON 4MG/2ML VIAL IV ONE (11:30)
[2020-10-24 11:42] LABS: ATYPICAL LYMPH 2 % (0-5); BASOPHILS 3 % (0-1); EOSINOPHILS 3 % (0-3); LYMPHOCYTES 38 % (16-44); MONOCYTES 5 % (0-5); NEUTROPHILS 49 % (28-66); PLATELET ESTIMATE NORMAL (NORMAL)
[2020-10-24 11:45] LABS: ALBUMIN 3.6 GM/DL (3.2-5.2); ALT/SGPT 18 U/L (12-78); BILIRUBIN,DIRECT < 0.1 MG/DL (0.0-0.2); BILIRUBIN,TOTAL 0.3 MG/DL (0.2-1.0); LIPASE 75 U/L (73-393); TOTAL PROTEIN 6.7 GM/DL (6.4-8.2)
--- NOTE | 2020-10-24 11:55 | REP ---
INDICATION: flank pain right. COMPARISON: 07/10/2017 TECHNIQUE: Axial contrast-enhanced images from the lung bases to the pubic symphysis using 100 cc Isovue 370 intravenous contrast material. Coronal and sagittal reformations obtained. This CT examination was performed using the following dose reduction techniques: Automated exposure control, adjustment of mA and/or kv according to the patient's size, and the use of iterative reconstruction technique. FINDINGS: Liver, spleen, pancreas, gallbladder, bilateral adrenal glands and kidneys are normal/stable. Small hypodense lesion within the left hepatic lobe may represent hemangioma (series 201; image 24). There is no evidence for bowel obstruction. Mild mucosal thickening to the transverse colon is nonspecific, but may represent a mild infectious colitis. Remainder of the small and large bowel is unremarkable. Normal terminal ileum and appendix identified in the right lower quadrant. Few scattered sigmoid diverticula noted without acute diverticulitis. Pelvis demonstrates normal bladder and age-appropriate uterus/adnexa. Incidental small 2 mm calcification within the dependent portion of the bladder may represent recently passed urinary tract stone (series 201; image 146). No ascites. No free air. No intraperitoneal or retroperitoneal adenopathy. Abdominal aorta and vasculature appear normal. Musculoskeletal structures are intact and without acute osseous abnormality. IMPRESSION: 1. Cannot exclude mild colitis involving the transverse colon. 2. 2 mm calcification within the bladder may represent recently passed stone. 3. Small hepatic hypodensity possibly representing hemangioma or cyst. <Electronically signed by Carlos Robison > 10/24/20 [id number]
--- NOTE | 2020-10-24 12:30 | REP ---
INDICATION: ruq pain COMPARISON: None. TECHNIQUE: Real time stone scale ultrasound examination using curved array transducer. FINDINGS: Liver is normal in contour, size, and echogenicity without focal hepatic lesions identified. Pancreas is incompletely evaluated due to interposed bowel gas. The gallbladder is normal and without gallstones, wall thickening, or pericholecystic fluid. No biliary ductal dilatation is appreciated and the common bile duct measures 3.0 mm diameter. Right kidney is normal in reniform shape without hydronephrosis and measures 11.5 x 5.9 x 4.2 cm. Incidental 4 mm echogenic focus may represent small benign angiomyolipoma. No ascites in the visualized right upper quadrant. IMPRESSION: No significant acute pathology by ultrasound evaluation. <Electronically signed by Carlos Robison > 10/24/20 [id number]
[2020-10-24] MEDS ORDERED: KETO10TAB PO (12:46)
[2020-10-24] MEDS ORDERED: ZOFR4TAB16 PO (12:46)
[2020-10-24 13:06] VITALS: BP 105/58
--- NOTE | 2020-10-28 08:03 | ED PDOC ---
Post-Departure Follow-Up radiology report faxed to Claire Wagner MD October 28, 2020 08:03
== END 2020-10-24 13:07 | disposition home or self-care (01) ==
LOC: M ED 10:34
DX: N21.0 Calculus in bladder (principal); Z79.899 Other long term (current) drug therapy; Z87.442 Personal history of urinary calculi; Z87.42 Personal history of other diseases of the female genital tract; Z84.2 Family history of other diseases of the genitourinary system
CPT/HCPCS: 36415; 74177; 76705; 80047; 80076; 81001; 83690; 84702; 85025; 96374; 96375; 99284; J1885; J2405; Q9967

== ENCOUNTER 2021-12-22 04:20 | Emergency (ER) | payer BC ==
[~2021-12-22] VITALS: Ht 162.6 cm; Wt 90.0 kg
[~2021-12-22 04:20] MED LIST changes: +CLOMID; +ZOFR4TAB16 PO
[2021-12-22] MEDS ORDERED: NS 1,000 ML IV ONE (04:55)
[2021-12-22] MEDS ORDERED: KETOROLAC 30 MG/ML 1ML VIAL IV ONE (04:55)
[2021-12-22 04:57] LABS: HEMATOCRIT 36.7 % (36.0-47.0); HEMOGLOBIN 12.9 g/dl (12.0-15.5); MEAN CORPUSCULAR HEMOGLOBIN 28.8 pg (27.0-33.0); MEAN CORPUSCULAR HGB CONC 35.1 g/dl (32.0-36.5); MEAN CORPUSCULAR VOLUME 81.9 fl (80.0-96.0); PLATELET COUNT, AUTOMATED 252 10^3/uL (150-450); RED BLOOD COUNT 4.48 10^6/uL (4.00-5.40); WHITE BLOOD COUNT 6.7 10^3/uL (4.0-10.0)
[2021-12-22 05:13] LABS: HCG, SERUM QUALITATIVE NEGATIVE (NEGATIVE)
[2021-12-22 05:24] LABS: ALT/SGPT 22 U/L (12-78); AMYLASE 26 U/L (25-115); BILIRUBIN,DIRECT < 0.1 MG/DL (0.0-0.2); BILIRUBIN,TOTAL 0.3 MG/DL (0.2-1.0); BLOOD UREA NITROGEN 7 MG/DL (7-18); CALCIUM LEVEL 9.4 MG/DL (8.5-10.1); CARBON DIOXIDE LEVEL 19 MEQ/L (21-32); CHLORIDE LEVEL 112 MEQ/L (98-107); CREATININE FOR GFR 0.78 MG/DL (0.55-1.30); GLOMERULAR FILTRATION RATE > 60.0 (>60); GLUCOSE, FASTING 116 MG/DL (70-100); LIPASE 123 U/L (73-393); POTASSIUM SERUM 3.4 MEQ/L (3.5-5.1); SODIUM LEVEL 143 MEQ/L (136-145); TOTAL PROTEIN 7.1 GM/DL (6.4-8.2)
[2021-12-22 05:26] LABS: ATYPICAL LYMPH 1 % (0-5); BASOPHILS 3 % (0-1); EOSINOPHILS 2 % (0-3); LYMPHOCYTES 44 % (16-44); MONOCYTES 4 % (0-5); NEUTROPHILS 44 % (28-66)
[2021-12-22 05:27] LABS: PLATELET ESTIMATE NORMAL (NORMAL)
[2021-12-22] MEDS ORDERED: ONDA4TAB6 PO (09:27)
[2021-12-22] MEDS ORDERED: ONDANSETRON 4MG ORAL DISINTEGRATING TAB PO ONE (09:30)
[2021-12-22 09:49] VITALS: BP 130/75
== END 2021-12-22 09:52 | disposition home or self-care (01) ==
LOC: M ED 04:20
DX: R10.9 Unspecified abdominal pain (principal); Z87.42 Personal history of other diseases of the female genital tract; Z87.442 Personal history of urinary calculi
CPT/HCPCS: 74176; 80047; 80048; 80076; 81001; 82150; 83690; 84703; 85025; 96361; 96374; 99284; J1885

== ENCOUNTER → 2022-02-13 | Outpatient (REF) | payer BC, OTHER ==
[~2022-02-13] MED LIST changes: +ONDA4TAB6 PO
== END ==
LOC: M SFHCWAGY 17:28
PROVIDERS: ATTEND Specialist
DX: Z12.4 Encounter for screening for malignant neoplasm of cervix (principal); R87.612 Low grade squamous intraepithelial lesion on cytologic smear of cervix (LGSIL)

== ENCOUNTER → 2022-10-25 | Outpatient (CLI) | payer BC ==
[~2022-10-25] MED LIST changes: +ETON1VAG7 VA; -NUVAMIS2 VA
[2022-10-25 18:27] LABS: HEPATITIS B SURFACE ANTIGEN NEGATIVE (NEGATIVE)
[2022-10-25 18:40] LABS: HIV 1&2 SCREEN NEGATIVE (NEGATIVE)
[2022-10-25 18:48] LABS: HEPATITIS C VIRUS ABY INDEX < 0.0 INDEX (<0.8)
[2022-10-25 18:49] LABS: HEPATITIS B CORE ANTIBODY IGM NEGATIVE (NEGATIVE)
[2022-10-25 22:10] LABS: GC DNA AMPLIFICATION NEGATIVE (NEGATIVE)
== END ==
LOC: M PLALAB 16:45
PROVIDERS: ATTEND Nurse Practitioner Family
DX: Z11.3 Encounter for screening for infections with a predominantly sexual mode of transmission (principal)

== ENCOUNTER → 2022-10-25 | Outpatient (REF) | payer BC | LOC: M PLALAB 16:54 | PROVIDERS: ATTEND Nurse Practitioner Family | DX: Z53.9 Procedure and treatment not carried out, unspecified reason (principal) ==

== ENCOUNTER → 2023-11-13 | Outpatient (REF) | payer OTHER ==
[~2023-11-13] MED LIST changes: +ONDA-282 PO; -ONDA4TAB6 PO
== END ==
LOC: M SFHCWAGY 14:55
PROVIDERS: ATTEND Nurse Practitioner Family
DX: Z12.4 Encounter for screening for malignant neoplasm of cervix (principal)

== ENCOUNTER → 2024-10-14 | Outpatient (REF) | payer OTHER ==
[~2024-10-14] MED LIST changes: -FLOM0.4C39 PO; +TAMS-18 PO
== END ==
LOC: M SFHCLERA 14:53
PROVIDERS: ATTEND Internal Medicine
DX: Z53.20 Procedure and treatment not carried out because of patient's decision for unspecified reasons (principal)

== ENCOUNTER 2025-01-07 09:14 | Day surgery (SDC) | payer OTHER ==
[~2025-01-07] VITALS: Ht 162.6 cm; Wt 98.6 kg
[2025-01-07] MEDS: LR 1,000 ML IV SCH (10:30)
[2025-01-07] MEDS ORDERED: LIDOCAINE 2% 100 MG/5 ML SDV (FOR ANES.) As Ordered ONE (12:04)
[2025-01-07] MEDS ORDERED: MIDAZOLAM INJ 2 MG/2 ML VIAL As Ordered ONE (12:05)
[2025-01-07] MEDS ORDERED: dexAMETHasone 4 MG/ML 1 ML VIAL As Ordered ONE (12:07)
[2025-01-07] MEDS ORDERED: ROCURONIUM BROMIDE 50MG/5ML VIAL As Ordered ONE (12:09)
[2025-01-07] MEDS ORDERED: ACETAMINOPHEN 1000MG/100ML IV BAG As Ordered ONE (13:09)
[2025-01-07] MEDS ORDERED: ONDANSETRON 4MG 2ML VIAL As Ordered ONE (13:10)
[2025-01-07] MEDS: dexAMETHasone 4 MG/ML 1 ML VIAL IV ONE (13:10)
[2025-01-07] MEDS ORDERED: HYDROmorphone HCL 2 MG/ML 1 ML VIAL As Ordered ONE (13:15)
[2025-01-07] MEDS ORDERED: ESMOLOL 100 MG/10 ML VIAL As Ordered ONE (13:17)
[2025-01-07] MEDS ORDERED: SUGAMMADEX SODIUM 200 MG/2 ML VIAL As Ordered ONE (13:24)
[2025-01-07] MEDS: OXYMETAZOLINE 0.05% NASAL SPRAY As Ordered ONE (13:31)
[2025-01-07] MEDS ORDERED: LR 1,000 ML IV SCH (13:40)
[2025-01-07] MEDS ORDERED: HYDROMORPHONE HCL 0.5 MG/0.5 ML SYRINGE IV PRN (13:40)
[2025-01-07 15:30] VITALS: BP 140/89; TEMP 97; O2SAT 97
== END 2025-01-07 15:55 | disposition home or self-care (01) ==
LOC: M SDC 09:14
PROVIDERS: ATTEND Otolaryngology
DX: J35.01 Chronic tonsillitis (principal)
CPT/HCPCS: 42826; 81025; 88302; J0131; J1100; J1171; J1805; J2250; J2405; J2765; J3010